=== PATIENT | female | born 1945 | race Caucasian/White ===

== ENCOUNTER 2017-03-13 09:15 | Observation (INO) | payer MEDICARE, BC ==
[~2017-03-13] VITALS: Ht 162.6 cm; Wt 100.0 kg
[2017-03-13] VITALS (9 sets, daily range): BP systolic 138–167; BP diastolic 57–70; PULSE 61–77; RESP 16–20; TEMP 97.8–98.8; O2SAT 92–99
[~2017-03-13 09:15] MED LIST: ALPR0.5T99 PO; AMLO5TAB96 PO; ASPI1TAB7 PO; ATEN-100 PO; ATOR40TA PO; CALC-197 PO; CLON0.5T PO; CLOP75 PO; LEVO112T17 PO; LIOT5TAB PO; NITR0.4S SL; SERT100 PO; TAB-TAB PO
[2017-03-13] MEDS ORDERED: SODIUM CHLORIDE 0.9% FLUSH 10 ML FLUSH IVF PRN (09:45)
[2017-03-13] MEDS ORDERED: ASPIRIN 81 MG CHEW TAB CHEW ONE (09:45)
--- NOTE | 2017-03-13 10:05 | PD ---
HPI Chief Complaint: Chest Pain Time Seen by Provider: 09:30 Travel History International Travel<30 days: No Contact w/Intl Traveler<30days: No Traveled to known affect area: No History of Present Illness HPI This is a 71-year-old female who has a history of coronary artery disease with 5 stents who follows with Dr. Hamilton who presents to the emergency department with chest discomfort that started this morning in the center of her chest, nonradiating, lasting for several minutes and then subsiding. Patient reports that initially started when she was taking a walk this morning and then went away after nitroglycerin. She said when she was walking from the parking lot here to the emergency Department the chest discomfort started again. Currently the pain is resolved. She denies any associated nausea, diaphoresis or shortness of breath. She just had a stress test in January which was reassuring. PFSH Past Medical History Hx Anticoagulant Therapy: Yes (PLAVIX) Arthritis: Yes Blood Disorders: No Anxiety: Yes Depression: Yes Heart Rhythm Problems: No Cancer: No Cardiac Catheterization: Yes () Cardiovascular Problems: Yes High Cholesterol: Yes Chest Pain: Yes Cerebrovascular Accident: No Coronary Artery Disease: Yes Diabetes: No Diminished Hearing: No Endocrine: Yes Gastrointestinal Disorders: Yes GERD: Yes Glaucoma: No Genitourinary: No Headaches: No Hepatitis: No Hiatal Hernia: Yes Hypertension: Yes Immune Disorder: No Implanted Vascular Access Dvce: No Kidney Stones: No Musculoskeletal: Yes Neurologic: Yes Psychiatric: Yes Reproductive: No Respiratory: No Integumentary: No Immunizations Current: No Migraines: No Myocardial Infarction: Yes Renal Failure: No Seizures: No Thyroid Disease: Yes Ulcer: No ?: Not Menopausal: Yes Tubal Ligation: Yes Past Surgical History Abdominal Surgery: No Cardiac Surgery: Yes (stents x5) Coronary Stent: Yes (X2) Ear Surgery: No Endocrine Surgery: No Eye Surgery: No Genitourinary Surgery: No Gynecologic Surgery: Yes (tubal ligation) Neurologic Surgery: No Oral Surgery: Yes (tonsillectomy) Thoracic Surgery: No Tonsillectomy: Yes Other Surgery: Yes (TUBAL LIGATION/TONSILECTOMY/L BREAST BIOPSY) Social History Alcohol Use: Yes (OCC. SOCIALLY) Tobacco Use: No Substance Use: No Allergies-Medications (Allergen,Severity, Reaction): Coded Allergies: Amoxicillin (Verified Allergy, Severe, 03/13/17) Codeine (Verified Allergy, Severe, 03/13/17) Lisinopril (Verified Allergy, Severe, 03/13/17) Penicillin (Verified Allergy, Severe, 03/13/17) Sudafed (Verified Allergy, Severe, 03/13/17) Sulfa (Verified Allergy, Severe, 03/13/17) Reported Meds & Prescriptions Reported Meds & Active Scripts Active Reported Alprazolam 0.5 Mg Tab 0.5 Mg PO DAILY PRN Amlodipine (Amlodipine Besylate) 5 Mg Tab 5 Mg PO BID Aspirin 81 (Aspirin) 81 Mg Tabdr 81 Mg PO DAILY Atenolol 25 Mg Tab 25 Mg PO HS Atorvastatin (Atorvastatin Calcium) 40 Mg Tab 40 Mg PO HS Clonazepam 0.5 Mg Tab 0.5 Mg PO TID Calcium 600 + Vit D Tablet (Calcium Carbonate/Vitamin D3) 1 Each Tablet 1 Tab PO BID Plavix (Clopidogrel Bisulfate) 75 Mg Tab 75 Mg PO DAILY Levothyroxine (Levothyroxine Sodium) 175 Mcg Tab 175 Mcg PO DAILY Bentyl (Dicyclomine HCl) 10 Mg Cap 10 Mg PO BID Nitrostat SL (Nitroglycerin) 0.4 Mg Subl 0.4 Mg SL DIRECTED PRN 1 tablet under the tongue as needed for chest pain. Repeat every 5 minutes for a total of 3 DOSES or call 911 if NO relief. Centrum Silver Adult 50+ (Multiple Vitamins W/ Minerals) 1 Tab Tab 1 Tab PO DAILY B Complex (B-Complex Vitamins) 1 Cap 1 Cap PO DAILY Col-Rite (Docusate Sodium) 50 Mg Capsule 50-100 Mg PO HS PRN Sertraline (Sertraline HCl) 100 Mg Tab 200 Mg PO HS Review of Systems Except as stated in HPI: all other systems reviewed are Neg Physical Exam Narrative GENERAL:Well appearing, no acute distress SKIN: Focused skin assessment warm and dry. HEAD: Atraumatic. Normocephalic. EYES: Pupils equal and round. No injection or drainage. ENT: Moist mucous membranes NECK: Trachea midline. CARDIOVASCULAR: Regular rate and rhythm. 3/6 systolic murmur RESPIRATORY: Clear to auscultation. Breath sounds equal bilaterally. GASTROINTESTINAL: Abdomen soft, non-tender, nondistended. MUSCULOSKELETAL: No obvious deformities. NEUROLOGICAL: Awake and alert. No obvious cranial nerve deficits. Moving all extremities. PSYCHIATRIC: Appropriate mood and affect; insight and judgment normal. Data Data Last Documented VS Vital Signs Date Time Temp Pulse Resp B/P Pulse Ox O2 Delivery O2 Flow Rate FiO2 03/13/17 12:23 68 20 158/69 94 Nasal Cannula 2 03/13/17 09:17 98.8 Orders Electrocardiogram (03/13/17 ) Complete Blood Count With Diff (03/13/17 09:36) Comprehensive Metabolic Panel (03/13/17 09:36) Magnesium (Mg) (03/13/17 09:36) Troponin I (03/13/17 09:36) Chest, Single Ap (03/13/17 09:36) Ecg Monitoring (03/13/17 09:36) Bilateral Bp Monitoring (03/13/17 09:36) Iv Access Insert/Monitor (03/13/17 09:36) Oximetry (03/13/17 09:36) Oxygen Administration (03/13/17 09:36) Sodium Chloride 0.9% Flush (Ns Flush) (03/13/17 09:45) Aspirin Chew (Aspirin Chew) (03/13/17 09:45) Admit Order (Ed Use Only) (03/13/17 12:28) Consult Cardiology (03/13/17 ) Labs Laboratory Tests Test 03/13/17 09:40 White Blood Count 10.0 TH/MM3 Red Blood Count 5.21 MIL/MM3 Hemoglobin 13.5 GM/DL Hematocrit 40.8 % Mean Corpuscular Volume 78.3 FL Mean Corpuscular Hemoglobin 25.9 PG Mean Corpuscular Hemoglobin 33.1 % Concent Red Cell Distribution Width 14.7 % Platelet Count 352 TH/MM3 Mean Platelet Volume 7.8 FL Neutrophils (%) (Auto) 75.7 % Lymphocytes (%) (Auto) 15.4 % Monocytes (%) (Auto) 5.2 % Eosinophils (%) (Auto) 3.0 % Basophils (%) (Auto) 0.7 % Neutrophils # (Auto) 7.6 TH/MM3 Lymphocytes # (Auto) 1.5 TH/MM3 Monocytes # (Auto) 0.5 TH/MM3 Eosinophils # (Auto) 0.3 TH/MM3 Basophils # (Auto) 0.1 TH/MM3 CBC Comment DIFF FINAL Differential Comment Sodium Level 142 MEQ/L Potassium Level 4.2 MEQ/L Chloride Level 108 MEQ/L Carbon Dioxide Level 25.3 MEQ/L Anion Gap 9 MEQ/L Blood Urea Nitrogen 16 MG/DL Creatinine 1.35 MG/DL Estimat Glomerular Filtration 39 ML/MIN Rate Random Glucose 96 MG/DL Calcium Level 9.3 MG/DL Magnesium Level 2.3 MG/DL Total Bilirubin 0.3 MG/DL Aspartate Amino Transf 16 U/L (AST/SGOT) Alanine Aminotransferase 21 U/L (ALT/SGPT) Alkaline Phosphatase 120 U/L Troponin I 0.03 NG/ML Total Protein 7.9 GM/DL Albumin 3.5 GM/DL MDM Medical Decision Making Medical Screen Exam Complete: Yes Emergency Medical Condition: Yes Interpretation(s) Afebrile, no tachycardia, hypertensive No leukocytosis Electrolytes are reassuring Troponin is 0.03 EKG: Normal sinus rhythm, T-wave inversions in the lateral leads Chest x-ray: No acute process Differential Diagnosis Acute coronary syndrome, pulmonary embolism, pericarditis, pneumonia Narrative Course This is a 71-year-old female who has a history of coronary artery disease with 5 stents who presents to the emergency department with symptoms typical of exertional angina. EKG demonstrates some ST depression in the lateral leads. Labs were obtained and patient was placed on a monitor. Troponin is 0.3. I spoke to Dr. Terry who was on-call for Dr. Hamilton. He recommended the patient be placed in observation for possible cardiac catheterization given the exertional component to her symptoms. Physician Communication Physician Communication Discussed with Dr. Crews Diagnosis Primary Impression: Chest pain Qualified Code: R07.9 - Chest pain, unspecified type Stephanie Jacob MD March 13, 2017 10:05
[2017-03-13 10:11] LABS: AUTOMATED NEUTROPHIL # 7.6 TH/MM3 (1.8-7.7); BASOPHIL # 0.1 TH/MM3 (0-0.2); BASOPHIL % 0.7 % (0.0-2.0); EOSINOPHIL # 0.3 TH/MM3 (0-0.4); HEMATOCRIT 40.8 % (35.0-46.0); HEMO FLAGS DIFF FINAL; LYMPH % 15.4 % (9.0-44.0); LYMPHOCYTE # 1.5 TH/MM3 (1.0-4.8); MEAN CELL VOLUME 78.3 FL (80.0-100.0); MEAN CORPUSCULAR HEMOGLOBIN 25.9 PG (27.0-34.0); MEAN CORPUSCULAR HGB CONC 33.1 % (32.0-36.0); MONO % 5.2 % (0.0-8.0); NEUT % 75.7 % (16.0-70.0); PLATELET COUNT 352 TH/MM3 (150-450); RED BLOOD COUNT 5.21 MIL/MM3 (4.00-5.30); RED CELL DISTRIBUTION WIDTH 14.7 % (11.6-17.2)
[2017-03-13 10:24] LABS: ANION GAP 9 MEQ/L (5-15); AST (GOT) 16 U/L (15-37); BICARBONATE 25.3 MEQ/L (21.0-32.0); BLOOD UREA NITROGEN 16 MG/DL (7-18); CHLORIDE 108 MEQ/L (98-107); GLOMERULAR FILTRATION RATE 39 ML/MIN (>89); MAGNESIUM 2.3 MG/DL (1.5-2.5); POTASSIUM 4.2 MEQ/L (3.5-5.1); SODIUM (NA) 142 MEQ/L (136-145)
[2017-03-13 10:28] LABS: ALKALINE PHOSPHATASE 120 U/L (45-117); ALT (GPT) 21 U/L (10-53); TOTAL BILIRUBIN ADULT 0.3 MG/DL (0.2-1.0)
--- NOTE | 2017-03-13 10:47 | RADRPT ---
EXAM DATE/TIME: 03/13/2017 10:17 [facility] COMPARISON: CHEST SINGLE AP, November 02, 2015, 12:31. INDICATIONS : Chest pain. MEDICAL HISTORY : Heart murmur, leaky valves. SURGICAL HISTORY : Coronary artery stent. ENCOUNTER: Initial ACUITY: 1 day PAIN SCORE: 3/10 LOCATION: Chest FINDINGS: Portable AP view of the chest demonstrates a normal-sized cardiac silhouette. No effusion, consolidat ion, or pneumothorax is visualized. The bones and soft tissues demonstrate no acute abnormality. EKG lines overlie the patient. CONCLUSION: No acute cardiopulmonary abnormality is identified. Guy Azar MD on March 13, 2017 at 10:45 Board Certified Radiologist. This report was verified electronically.
--- NOTE | 2017-03-13 11:23 | EKG ---
Date Performed: 03/13/2017 Time Performed: 09:32:59 PTAGE: 71 years EKG: Sinus rhythm Nonspecific ST-T wave changes ABNORMAL ECG INTERPRETATION BASED ON A DEFAULT AGE OF 40 YEARS No sign ificant change from prior electrocardiogram. PREVIOUS TRACING : 12/14/2015 13.51 DOCTOR: Ashok Bright Interpretating Date/Time 03/13/2017 11:23:04
[2017-03-13] MEDS ORDERED: ACETAMINOPHEN 325 MG TAB PO PRN (12:30)
[2017-03-13] MEDS ORDERED: SENNOSIDES 8.6 MG TAB PO PRN (12:30)
[2017-03-13] MEDS ORDERED: ONDANSETRON HCL 4 MG/2 ML VIAL IVP PRN (12:30)
[2017-03-13] MEDS ORDERED: SODIUM CHLORIDE 0.9% FLUSH 10 ML FLUSH IV FLUSH PRN (12:30)
[2017-03-13] MEDS ORDERED: MAGNESIUM HYDROXIDE SUSP 30 ML CUP PO PRN (12:30)
[2017-03-13] MEDS ORDERED: NALOXONE HCL 0.4 MG/ML AMP IV PRN (12:30)
[2017-03-13] MEDS ORDERED: LACTULOSE SYRUP 20 GM/30 ML CUP PO PRN (12:30)
[2017-03-13] MEDS ORDERED: BISACODYL 10 MG SUPP RECTAL PRN (12:30)
[2017-03-13] MEDS ORDERED: LEVO-154 PO (12:54)
[2017-03-13] MEDS ORDERED: VITACAP7 PO (12:54)
[2017-03-13] MEDS ORDERED: MULT1TAB PO (12:54)
[2017-03-13] MEDS ORDERED: SERT-129 PO (12:54)
[2017-03-13] MEDS ORDERED: CYTOMEL PO (12:54)
[2017-03-13] MEDS ORDERED: DICY10 PO (12:54)
[2017-03-13] MEDS ORDERED: DOCU50CA3 PO (12:54)
[2017-03-13] MEDS ORDERED: NITR0.4S SL (12:54)
[2017-03-13] MEDS ORDERED: CALC600T64 PO (12:54)
[2017-03-13] MEDS ORDERED: PLAV75TA29 PO (12:54)
[2017-03-13] MEDS ORDERED: CLON0.5T PO (12:57)
[2017-03-13] MEDS ORDERED: AMLO5TAB2 PO (12:59)
[2017-03-13] MEDS: HEPARIN SODIUM - SQ 10,000 UNITS/ML VIAL SQ SCH (12:59)
[2017-03-13] MEDS ORDERED: ATOR40TA16 PO (12:59)
[2017-03-13] MEDS ORDERED: ALPR0.5T3 PO (12:59)
[2017-03-13] MEDS ORDERED: ASPI-110 PO (12:59)
[2017-03-13] MEDS ORDERED: ATEN25TA PO (12:59)
[2017-03-13] MEDS ORDERED: CLOPIDOGREL 75 MG TAB PO ONE (13:15)
[2017-03-13] MEDS ORDERED: HEPARIN-D5W INJ 250 ML IV SCH (14:45)
--- NOTE | 2017-03-13 14:46 | HHI.PR ---
Objective Objective Results - Vital Signs Date Time Temp Pulse Resp B/P Pulse Ox O2 Delivery O2 Flow Rate FiO2 03/13/17 14:08 97.8 64 16 138/63 98 03/13/17 12:23 68 20 158/69 94 Nasal Cannula 2 03/13/17 10:05 99 Room Air 03/13/17 10:05 99 03/13/17 09:31 72 18 167/70 96 Room Air 03/13/17 09:31 76 20 96 Room Air 03/13/17 09:17 98.8 77 20 95 Room Air Result Diagram: 03/13/17 0940 03/13/17 0940 Other Results Laboratory Tests Test 03/13/17 03/13/17 09:40 13:42 White Blood Count 10.0 Red Blood Count 5.21 Hemoglobin 13.5 Hematocrit 40.8 Mean Corpuscular Volume 78.3 Mean Corpuscular Hemoglobin 25.9 Mean Corpuscular Hemoglobin 33.1 Concent Red Cell Distribution Width 14.7 Platelet Count 352 Mean Platelet Volume 7.8 Neutrophils (%) (Auto) 75.7 Lymphocytes (%) (Auto) 15.4 Monocytes (%) (Auto) 5.2 Eosinophils (%) (Auto) 3.0 Basophils (%) (Auto) 0.7 Neutrophils # (Auto) 7.6 Lymphocytes # (Auto) 1.5 Monocytes # (Auto) 0.5 Eosinophils # (Auto) 0.3 Basophils # (Auto) 0.1 CBC Comment DIFF FINAL Differential Comment Sodium Level 142 Potassium Level 4.2 Chloride Level 108 Carbon Dioxide Level 25.3 Anion Gap 9 Blood Urea Nitrogen 16 Creatinine 1.35 Estimat Glomerular Filtration 39 Rate Random Glucose 96 Calcium Level 9.3 Magnesium Level 2.3 Total Bilirubin 0.3 Aspartate Amino Transf 16 (AST/SGOT) Alanine Aminotransferase 21 (ALT/SGPT) Alkaline Phosphatase 120 Troponin I 0.03 0.09 Total Protein 7.9 Albumin 3.5 Physical Exam Physical Exam PHYSICAL EXAMINATION GENERAL: This is a well-developed, well-nourished female who appears to be in no acute distress. She is alert and awake, []. HEAD: Normocephalic without any lesion or mass noted. Facial features appear symmetric. EYES: Perrla, Normal eye movement, [] Icterus. [] Conj congestion. OROPHARYNGEAL: Oropharynx without erythema or edema. MOUTH/THROAT: Tongue midline []. Buccal mucosa is moist []. NECK: Supple. No nuchal rigidity or lymphadenopathy. Trachea midline without deviation. Thyroid not palpable, no bruits appreciated. CARDIAC: Regular rhythm, regular rate, S1 and S2 are heard. Murmur []; no gallops or rubs. LUNGS: Clear to auscultation bilaterally. [] wheeze, [] rhonchi or [] rale. No use of accessory muscles on inspiration or expiration. ABDOMEN: Soft, nontender, no organomegaly or masses. Bowel sounds are heard in all four quadrants. No rebound. No guarding. EXTREMITIES: [] edema. Pulses equal bilateral. [] cyanosis. NEUROLOGICAL: Patient mood and affect appropriate. Cranial nerves II through XII grossly intact. Muscle strength 5/5 in the upper and lower extremities bilaterally. Deep tendon reflexes are 2+ in the upper and lower extremities bilaterally. SKIN:Warm and moist PSYCH: Mood and affect appropriate A/P Assessment and Plan patient seen and examined Please refer to admission h& P for details 71 yr old female with recent stress test neg , came in with Chest pain on exertion, relieved at rest, increasing troponin and EKG suggesting lateral ischemia will admit to observation, likely NSTEMI consult cardiology Aspirin given start heparin gtt continue to trend troponin BB NPO after midnight likely cardiac cath in am plan of care discussed with patient, at bed side, nursing staff and Pallavi Olmedo MD March 13, 2017 14:45
--- NOTE | 2017-03-13 16:27 | HHI.HP ---
HPI Service [facility] Primary Care Physician Unknown Admission Diagnosis angina Diagnoses: Chief Complaint: chest pain Travel History International Travel<30 Days: No Contact w/Intl Traveler <30 Da: No Traveled to Known Affected Are: No History of Present Illness This a 71-year-old female with known history of coronary artery disease and 5 stents, hypertension, hyperlipidemia, anxiety. Patient presented to the emergency room with complaint of chest pain. Patient indicates that she had gone out for a walk when she had a burning and pressure sensation moving from the epigastric all the way up to mid sternum. Denies any shortness of breath, no nausea, no vomiting, no diaphoresis, no lightheadedness. States that she went home and took a nitroglycerin which relieved it. She decided to come to the emergency room and while walking to the entrance she again developed discomfort. Patient denies any prior myocardial infarction, has never had pain like this. She had a stress test at Dr. Hamilton's office in January which was normal. Her last cardiac catheter was December 2015 where she had angioplasty in-stent restenosis in the ostium of RCA, was found with a patent stent to the LAD and diagonal artery. Indications been compliant with medications, she is on Plavix. Patient was evaluated in emergency room, troponin was noted mildly elevated 0.03, second set was 0.09. EKG shows some ST depression. Dr. Terry who was covering for Dr. Hamilton was called from the emergency room and recommended to place the patient on heparin drip. BMP significant for renal insufficiency which appears to be chronic. Patient is now examined, she denies any chest pain. She is resting comfortably. Patient is admitted for further evaluation and treatment. Review of Systems Constitutional: DENIES: Diaphoretic episodes, Fatigue, Fever, Weight gain, Weight loss, Chills, Dizziness, Change in appetite, Night Sweats Endocrine: DENIES: Abnorml menstrual pattern, Heat/cold intolerance, Polydipsia , Polyuria, Polyphagia Eyes: DENIES: Blurred vision, Diplopia, Eye inflammation, Eye pain, Vision loss , Photosensitivity, Double Vision Ears, nose, mouth, throat: DENIES: Tinnitus, Hearing loss, Vertigo, Nasal discharge, Oral lesions, Throat pain, Hoarseness, Ear Pain, Running Nose, Epistaxis, Sinus Pain, Toothache, Odynophagia Respiratory: DENIES: Apneas, Cough, Snoring, Wheezing, Hemoptysis, Sputum production, Shortness of breath Cardiovascular: COMPLAINS OF: Chest pain Gastrointestinal: DENIES: Abdominal pain, Black stools, Bloody stools, Constipation, Diarrhea, Nausea, Vomiting, Difficulty Swallowing, Anorexia Genitourinary: DENIES: Abnormal vaginal bleeding, Dysmenorrhea, Dyspareunia, Sexual dysfunction, Urinary frequency, Urinary incontinence, Urgency, Hematuria , Dysuria, Nocturia, Vaginal discharge Musculoskeletal: DENIES: Joint pain, Muscle aches, Stiffness, Joint Swelling, Back pain, Neck pain Integumentary: DENIES: Abnormal pigmentation, Pruritus, Rash, Nail changes, Breast masses, Breast skin changes, Nipple discharge Hematologic/lymphatic: DENIES: Bruising, Lymphadenopathy Immunologic/allergic: DENIES: Eczema, Urticaria Neurologic: DENIES: Abnormal gait, Headache, Localized weakness, Paresthesias, Seizures, Speech Problems, Tremor, Poor Balance Psychiatric: DENIES: Anxiety, Confusion, Mood changes, Depression, Hallucinations, Agitation, Suicidal Ideation, Homicidal Ideation, Delusions Past Family Social History Past Medical History CAD, but prior cardiac catheterizations and stents 5. Last cardiac catheter was December 15, 2015 Hypertension Hyperlipidemia Osteoarthritis GERD Anxiety Renal insufficiency Past Surgical History Cardiac catheterization Tubal ligation Tonsillectomy Left breast lumpectomy Hemorrhoidectomy Reported Medications Reported Meds & Active Scripts Active Reported Alprazolam 0.5 Mg Tab 0.5 Mg PO DAILY PRN Amlodipine (Amlodipine Besylate) 5 Mg Tab 5 Mg PO BID Aspirin 81 (Aspirin) 81 Mg Tabdr 81 Mg PO DAILY Atenolol 25 Mg Tab 25 Mg PO HS Atorvastatin (Atorvastatin Calcium) 40 Mg Tab 40 Mg PO HS Clonazepam 0.5 Mg Tab 0.5 Mg PO TID Calcium 600 + Vit D Tablet (Calcium Carbonate/Vitamin D3) 1 Each Tablet 1 Tab PO BID Plavix (Clopidogrel Bisulfate) 75 Mg Tab 75 Mg PO DAILY Levothyroxine (Levothyroxine Sodium) 175 Mcg Tab 175 Mcg PO DAILY [Cytomel] 5 Mcg PO DAILY Bentyl (Dicyclomine HCl) 10 Mg Cap 10 Mg PO BID Nitrostat SL (Nitroglycerin) 0.4 Mg Subl 0.4 Mg SL DIRECTED PRN 1 tablet under the tongue as needed for chest pain. Repeat every 5 minutes for a total of 3 DOSES or call 911 if NO relief. Centrum Silver Adult 50+ (Multiple Vitamins W/ Minerals) 1 Tab Tab 1 Tab PO DAILY B Complex (B-Complex Vitamins) 1 Cap 1 Cap PO DAILY Col-Rite (Docusate Sodium) 50 Mg Capsule 50-100 Mg PO HS PRN Sertraline (Sertraline HCl) 100 Mg Tab 200 Mg PO HS Allergies: Coded Allergies: Amoxicillin (Verified Allergy, Severe, 03/13/17) Codeine (Verified Allergy, Severe, 03/13/17) Lisinopril (Verified Allergy, Severe, 03/13/17) Penicillin (Verified Allergy, Severe, 03/13/17) Sudafed (Verified Allergy, Severe, 03/13/17) Sulfa (Verified Allergy, Severe, 03/13/17) Active Ordered Medications Inpatient Medications Acetaminophen (Tylenol) 650 mg Q4H PRN PO TEMP > 100.4; Start 03/13/17 at 12:30 Amlodipine Besylate (Norvasc) 5 mg BID PO ; Start 03/13/17 at 21:00 Aspirin (Aspirin Chew) 162 mg ONCE ONCE CHEW Last administered on 03/13/17 09 :50; Start 03/13/17 at 09:45; Stop 03/13/17 at 09:46; Status DC Aspirin (Ecotrin Ec) 81 mg DAILY PO ; Start 03/14/17 at 09:00 Atenolol (Tenormin) 25 mg HS PO ; Start 03/13/17 at 21:00 Atorvastatin Calcium (Lipitor) 40 mg HS PO ; Start 03/13/17 at 21:00 Bisacodyl (Dulcolax Supp) 10 mg DAILY PRN RECTAL SEVERE CONSITIPATION; Start at 12:30 Calcium/Vitamin D (Oscal-D 250-125) 500 mg BID PO ; Start 03/13/17 at 21:00 Clonazepam (KlonoPIN) 0.5 mg TID PO Last administered on 03/13/17 18:21; Start 03/13/17 at 18:00 Clopidogrel Bisulfate (Plavix) 75 mg DAILY PO ; Start 03/14/17 at 09:00 Clopidogrel Bisulfate 75 mg 75 mg ONCE ONCE PO Last administered on 03/13/17 13:13; Start 03/13/17 at 13:15; Stop 03/13/17 at 13:16; Status DC Heparin Sodium (Porcine) (Heparin Inj) 5,000 units Q12H SQ Last administered on 03/13/17 12:59; Start 03/13/17 at 13:00 Heparin Sodium/ Dextrose (Heparin-D5W Inj) 250 ml @ 0 mls/hr TITRATE IV Last administered on 03/13/17 17:38; Start 03/13/17 at 14:45 Lactulose (Lactulose Liq) 30 ml DAILY PRN PO SEVERE CONSITIPATION; Start at 12:30 Levothyroxine Sodium (Synthroid) 50 mcg DAILY@06 PO Last administered on 17:01; Start 03/13/17 at 15:00 Magnesium Hydroxide (Milk Of Magnesia Liq) 30 ml Q12H PRN PO MILD - MODERATE CONSTIPATION; Start 03/13/17 at 12:30 Naloxone HCl (Narcan Inj) 0.4 mg UNSCH PRN IV SEE LABEL COMMENTS; Start at 12:30 Nitroglycerin (Nitroglycerin 2% Oint) 1 inch Q8H TOPICAL Last administered on 18:21; Start 03/13/17 at 18:00 Ondansetron HCl (Zofran Inj) 4 mg Q6H PRN IVP NAUSEA OR VOMITING; Start at 12:30 Senna/Docusate Sodium (Tequila-Colace) 1 tab BID PO ; Start 03/13/17 at 21:00 Sennosides (Senokot) 17.2 mg Q12H PRN PO MODERATE - SEVERE CONSTIPATION; Start 03/13/17 at 12:30 Sertraline HCl (Zoloft) 200 mg HS PO ; Start 03/13/17 at 21:00 Sodium Chloride (NS Flush) 2 ml BID IV FLUSH ; Start 03/13/17 at 21:00 Family History Mother - history of myocardial infarction and CHF Social History Patient is , has a son who . No smoking, no alcohol, no substance abuse Physical Exam Vital Signs Vital Signs Date Time Temp Pulse Resp B/P Pulse Ox O2 Delivery O2 Flow Rate FiO2 03/13/17 14:08 97.8 64 16 138/63 98 03/13/17 12:23 68 20 158/69 94 Nasal Cannula 2 03/13/17 10:05 99 Room Air 03/13/17 10:05 99 03/13/17 09:31 72 18 167/70 96 Room Air 03/13/17 09:31 76 20 96 Room Air 03/13/17 09:17 98.8 77 20 95 Room Air Physical Exam GENERAL: This is a well-nourished, well-developed patient, in no apparent distress. SKIN: No rashes, ecchymoses or lesions. Cool and dry. HEAD: Atraumatic. Normocephalic. No temporal or scalp tenderness. EYES: Pupils equal round and reactive. Extraocular motions intact. No scleral icterus. No injection or drainage. ENT: Nose without bleeding, purulent drainage or septal hematoma. Throat without erythema, tonsillar hypertrophy or exudate. Uvula midline. Airway patent. NECK: Trachea midline. No JVD or lymphadenopathy. Supple, nontender, no meningeal signs. CARDIOVASCULAR: Regular rate and rhythm without murmurs, gallops, or rubs. RESPIRATORY: Clear to auscultation. Breath sounds equal bilaterally. No wheezes , rales, or rhonchi. GASTROINTESTINAL: Abdomen soft, non-tender, nondistended. No hepato-splenomegaly , or palpable masses. No guarding. MUSCULOSKELETAL: Extremities without clubbing, cyanosis, or edema. No joint tenderness, effusion, or edema noted. No calf tenderness. Negative Homans sign bilaterally. NEUROLOGICAL: Awake and alert. Cranial nerves II through XII intact. Motor and sensory grossly within normal limits. Five out of 5 muscle strength in all muscle groups. Normal speech. Laboratory Laboratory Tests Test 03/13/17 03/13/17 09:40 13:42 White Blood Count 10.0 Red Blood Count 5.21 Hemoglobin 13.5 Hematocrit 40.8 Mean Corpuscular Volume 78.3 Mean Corpuscular Hemoglobin 25.9 Mean Corpuscular Hemoglobin 33.1 Concent Red Cell Distribution Width 14.7 Platelet Count 352 Mean Platelet Volume 7.8 Neutrophils (%) (Auto) 75.7 Lymphocytes (%) (Auto) 15.4 Monocytes (%) (Auto) 5.2 Eosinophils (%) (Auto) 3.0 Basophils (%) (Auto) 0.7 Neutrophils # (Auto) 7.6 Lymphocytes # (Auto) 1.5 Monocytes # (Auto) 0.5 Eosinophils # (Auto) 0.3 Basophils # (Auto) 0.1 CBC Comment DIFF FINAL Differential Comment Sodium Level 142 Potassium Level 4.2 Chloride Level 108 Carbon Dioxide Level 25.3 Anion Gap 9 Blood Urea Nitrogen 16 Creatinine 1.35 Estimat Glomerular Filtration 39 Rate Random Glucose 96 Calcium Level 9.3 Magnesium Level 2.3 Total Bilirubin 0.3 Aspartate Amino Transf 16 (AST/SGOT) Alanine Aminotransferase 21 (ALT/SGPT) Alkaline Phosphatase 120 Troponin I 0.03 0.09 Total Protein 7.9 Albumin 3.5 Result Diagram: 03/13/1793903/13/17939 Imaging Last Impressions Chest X-Ray 03/13/17935 Signed Impressions: Service Date/Time: Monday, March 13, 2017 10:17 - CONCLUSION: No acute cardiopulmonary abnormality is identified. Guy Azar MD Assessment and Plan Problem List: (1) Chest pain (2) Anxiety (3) CAD (coronary artery disease) (4) Hyperlipidemia (5) GERD (gastroesophageal reflux disease) (6) HTN (hypertension) Assessment and Plan Admit to Dr. Crews 71-year-old female with history of coronary artery disease and prior stents 5. Presented to emergency room with complaint of burning and chest pressure with activity, relieved by nitroglycerin. Noted with mild elevation in troponin -Continue with cardiac enzymes Consulted cardiology for evaluation Continue with heparin drip We'll keep nothing by mouth after midnight for possible cardiac catheterization in the morning Continue Plavix 75 mg by mouth daily, aspirin 81 mg by mouth daily, atenolol 25 mg by mouth daily at bedtime, Lipitor 40 mg by mouth daily at bedtime -Lipid profile in the morning Renal insufficiency, stable Continue to monitor renal function -We'll hydrate cautiously with normal saline at 42 an hour -BMP in am Hypertension, stable Continue home medication Hyperlipidemia Continue statins Lipid profile in the morning GERD Protonix 40 mg by mouth daily Anxiety Continue home medications For DVT prophylaxis, patient will be on heparin drip Home medications reviewed, initiated as indicated Plan of care has been discussed with the patient, attending and registered nurse. Further management of the patient will be dependent on the hospital course This patient was seen by myself and Dr. Crews, this H&P is written on her behalf Problem Qualifiers (1) Chest pain: Qualified Code: R07.9 - Chest pain, unspecified type (2) CAD (coronary artery disease): Qualified Code: I25.118 - Coronary artery disease of [place] artery [place] heart with stable angina pectoris (3) Hyperlipidemia: Qualified Code: E78.5 - Hyperlipidemia, unspecified hyperlipidemia type (4) GERD (gastroesophageal reflux disease): Qualified Code: K21.9 - Gastroesophageal reflux disease, esophagitis presence not specified (5) HTN (hypertension): Qualified Code: I10 - Essential hypertension [place] Will March 13, 2017 16:27
[2017-03-13 16:53] LABS: HEMATOCRIT 40.5 % (35.0-46.0); MEAN CELL VOLUME 79.7 FL (80.0-100.0); MEAN CORPUSCULAR HEMOGLOBIN 25.5 PG (27.0-34.0); MEAN CORPUSCULAR HGB CONC 31.9 % (32.0-36.0); PLATELET COUNT 339 TH/MM3 (150-450); RED BLOOD COUNT 5.07 MIL/MM3 (4.00-5.30); RED CELL DISTRIBUTION WIDTH 14.5 % (11.6-17.2); REVIEW FLAG FINAL
[2017-03-13] MEDS: LEVOTHYROXINE SODIUM 125 MCG TAB PO SCH (17:01)
[2017-03-13] MEDS: LEVOTHYROXINE SODIUM 50 MCG TAB PO SCH (17:01)
[2017-03-13 17:02] LABS: APTT (PATIENT) 28.1 SEC (24.3-30.1); PROTHROMBIN TIME - PATIENT 10.5 SEC (9.8-11.6)
[2017-03-13] MEDS: NITROGLYCERIN 2% OINT 1 GM PACKET TOPICAL SCH (18:21)
[2017-03-13] MEDS: clonazePAM 0.5 MG TAB PO SCH (18:21)
[2017-03-13] MEDS ORDERED: SODIUM CHLOR 0.9% 1000 ML INJ 1,000 ML IV SCH (19:00)
--- NOTE | 2017-03-13 19:12 | MB ---
cc: PAMELA HARMAN M.D. DATE OF SURGERY 03/13/17 REASON FOR CARDIOLOGY CONSULT [id number] myocardial infarct. HISTORY OF PRESENT ILLNESS This is a 71-year-old white female for the last month or so has been having functional class III angina relieved by resting. It was described as a substernal burning with no shortness of breath or diaphoresis. Today she walked 15 minutes [address]-way and tried to come back. She developed substernal burning sensation. She kept on walking, the pain did not change. As soon as she stopped the pain went away. She took a nitro anyway. She was seen in the emergency room was found to have mildly elevated troponin. Her cardiac history dates back to 11 years ago. At that time she had five stents put in the left anterior descending and right coronary artery. Last year because she flunked her nuclear stress test Dr. Hamilton stented her right coronary artery ostiums for in-stent restenoses. She did well until a month ago. She is known to have hypertension and hyperlipidemia. She is a nonsmoker and nondrinker. PAST MEDICAL HISTORY Inguinal hernia repair, hypertension, hyperlipidemia, five stents put in, tubal ligation, benign polyps removed, syncopal episode in the past due to salmonella, colitis. Laminectomy, hypothyroidism. ALLERGIES AMOXICILLIN, CODEINE, LISINOPRIL, PENICILLIN, SUDAFED AND SULFA. MEDICATIONS AT HOME 1. Sertraline 100 milligrams daily. 2. Bentyl 10 milligrams twice a day. 3. Clonazepam 0.5 milligrams t.i.d. 4. Xanax 0.5 milligrams daily p.r.n. 5. Atenolol 25 milligrams daily. 6. Amlodipine 5 milligrams twice a day. 7. Lipitor 40 milligrams daily. 8. Multivitamin. 9. Baby aspirin a day. 10. Plavix 75 milligrams daily. 11. Levothyroxine 175 micrograms p.o. daily. REVIEW OF SYSTEMS ENT: Normal. GI: Normal. : Normal MUSCULOSKELETAL: Had a laminectomy in the past with some arthritis. EXPORT FREIGHT CLERK: No history of stroke. SOCIAL HISTORY This patient is with four children, one at age 27 of accidental drug overdose after a car accident. PHYSICAL EXAMINATION VITAL SIGNS: On the day of consultation show a blood pressure 167/70, pulse is 76 per minute, afebrile. HEAD/NECK: Exam showed normal oral exam. Neck is supple. CHEST: Exam was clear. CARDIOVASCULAR: Examination showed normal neck vein. S1-S2 normal. No S3, no S4. No murmur. ABDOMEN: Abdominal examination revealed liver and spleen not palpable. Bowel sounds normal. Nontender abdomen . EXPORT FREIGHT CLERK: Exam showed normal cranial nerves 3, 4, 6, 5, 7, 9, 10, 11, 12. PERIPHERAL VASCULAR: All peripheral pulses equal, normal. No bruits. ASSESSMENT 1. Non-ST elevation myocardial infarct. 2. Multivessel angioplasty and stenting of the left anterior descending and right coronary artery. 3. Hypertension, hyperlipidemia. 4. Degenerative arthritis with the low back . PLAN The patient will be kept NPO tonight for Dr. Hamilton to schedule for the cardiac catheterization tomorrow. The patient will continue aspirin, Plavix, beta dwayne and anticoagulant. MD SHARON Knight/NILDA /5:27 PM /6:49 PM SHO
[2017-03-13] MEDS: SODIUM CHLORIDE 0.9% FLUSH 10 ML FLUSH IV FLUSH SCH (20:01)
[2017-03-13] MEDS: CALCIUM/VITAMIN D 250 MG/125 U TAB PO SCH (20:41)
[2017-03-13] MEDS: amLODIPine BESYLATE 5 MG TAB PO SCH (20:42)
[2017-03-13] MEDS: DOCUSATE SODIUM 50 MG/SENNA 8.6 MG TAB PO SCH (20:42)
[2017-03-13] MEDS ORDERED: ATENOLOL 25 MG TAB PO SCH (21:00)
[2017-03-13] MEDS ORDERED: ATORVASTATIN 40 MG TAB PO SCH (21:00)
[2017-03-13] MEDS ORDERED: SERTRALINE HCL 100 MG TAB PO SCH (21:00)
[2017-03-13 22:39] LABS: APTT (PATIENT) 35.6 SEC (24.3-30.1)
[2017-03-14] MEDS: HEPARIN SODIUM - SQ 10,000 UNITS/ML VIAL SQ SCH (00:01)
[2017-03-14] MEDS: NITROGLYCERIN 2% OINT 1 GM PACKET TOPICAL SCH (01:34)
[2017-03-14 02:26] VITALS: O2SAT 96
[2017-03-14] MEDS ORDERED: RESP: ALBUTEROL 2.5 MG/IPRATROPIUM 0.5 MG NEB (PRN) NEB (02:30)
[2017-03-14 04:38] VITALS: BP 123/50; PULSE 64; RESP 20; TEMP 97.6; O2SAT 93
[2017-03-14 05:53] LABS: AUTOMATED NEUTROPHIL # 6.4 TH/MM3 (1.8-7.7); BASOPHIL # 0.1 TH/MM3 (0-0.2); BASOPHIL % 0.7 % (0.0-2.0); EOSINOPHIL # 0.3 TH/MM3 (0-0.4); EOSINOPHIL % 3.4 % (0.0-4.0); HEMATOCRIT 37.4 % (35.0-46.0); HEMO FLAGS DIFF FINAL; LYMPH % 26.4 % (9.0-44.0); LYMPHOCYTE # 2.6 TH/MM3 (1.0-4.8); MEAN CORPUSCULAR HEMOGLOBIN 26.4 PG (27.0-34.0); MEAN CORPUSCULAR HGB CONC 33.4 % (32.0-36.0); MONO % 4.8 % (0.0-8.0); NEUT % 64.7 % (16.0-70.0); PLATELET COUNT 346 TH/MM3 (150-450); RED BLOOD COUNT 4.73 MIL/MM3 (4.00-5.30); RED CELL DISTRIBUTION WIDTH 14.5 % (11.6-17.2); WHITE BLOOD COUNT 9.9 TH/MM3 (4.0-11.0)
[2017-03-14 05:58] LABS: APTT (PATIENT) 36.7 SEC (24.3-30.1)
[2017-03-14 06:05] LABS: BICARBONATE 27.6 MEQ/L (21.0-32.0); POTASSIUM 4.1 MEQ/L (3.5-5.1)
[2017-03-14 06:11] LABS: HDL CHOLESTEROL 41.2 MG/DL (40.0-60.0)
[2017-03-14] MEDS: LEVOTHYROXINE SODIUM 50 MCG TAB PO SCH (06:13)
[2017-03-14] MEDS: LEVOTHYROXINE SODIUM 125 MCG TAB PO SCH (06:13)
[2017-03-14 07:03] VITALS: O2SAT 95
[2017-03-14 07:45] VITALS: BP 141/60; PULSE 70; RESP 16; TEMP 97.9; O2SAT 94
--- NOTE | 2017-03-14 08:21 | HHI.PR ---
Subjective Subjective Remarks was sob overnight, hallways were "smoky", she got a duonebs with relief no cp no palpitations afebrile on heparin gtt anxious to have cardiac cath Review of Systems Constitutional Constitutional Remarks 12 point ROS completed, negative except as noted above Vitals/Results Vital Signs Vital Signs Date Time Temp Pulse Resp B/P Pulse Ox O2 Delivery O2 Flow Rate FiO2 03/14/17 07:45 97.9 70 16 141/60 94 03/14/17 07:03 95 Nasal Cannula 3.00 03/14/17 04:38 97.6 64 20 123/50 93 03/14/17 02:26 96 Nasal Cannula 3.00 03/13/17 23:42 98.1 67 18 149/69 92 03/13/17 23:10 63 03/13/17 18:17 142/57 93 03/13/17 14:32 61 03/13/17 14:08 97.8 64 16 138/63 98 03/13/17 12:23 68 20 158/69 94 Nasal Cannula 2 03/13/17 10:05 99 Room Air 03/13/17 10:05 99 03/13/17 09:31 72 18 167/70 96 Room Air 03/13/17 09:31 76 20 96 Room Air 03/13/17 09:17 98.8 77 20 95 Room Air CBC/BMP: 03/14/17 0456 03/14/17 0456 Lab Results Laboratory Tests Test 03/13/17 03/13/17 03/13/17 03/13/17 09:40 13:42 16:23 20:16 White Blood Count 10.0 TH/MM3 10.0 TH/MM3 Red Blood Count 5.21 MIL/MM3 5.07 MIL/MM3 Hemoglobin 13.5 GM/DL 12.9 GM/DL Hematocrit 40.8 % 40.5 % Mean Corpuscular Volume 78.3 FL 79.7 FL Mean Corpuscular Hemoglobin 25.9 PG 25.5 PG Mean Corpuscular Hemoglobin 33.1 % 31.9 % Concent Red Cell Distribution Width 14.7 % 14.5 % Platelet Count 352 TH/MM3 339 TH/MM3 Mean Platelet Volume 7.8 FL 8.1 FL Neutrophils (%) (Auto) 75.7 % Lymphocytes (%) (Auto) 15.4 % Monocytes (%) (Auto) 5.2 % Eosinophils (%) (Auto) 3.0 % Basophils (%) (Auto) 0.7 % Neutrophils # (Auto) 7.6 TH/MM3 Lymphocytes # (Auto) 1.5 TH/MM3 Monocytes # (Auto) 0.5 TH/MM3 Eosinophils # (Auto) 0.3 TH/MM3 Basophils # (Auto) 0.1 TH/MM3 CBC Comment DIFF FINAL Differential Comment Sodium Level 142 MEQ/L Potassium Level 4.2 MEQ/L Chloride Level 108 MEQ/L Carbon Dioxide Level 25.3 MEQ/L Anion Gap 9 MEQ/L Blood Urea Nitrogen 16 MG/DL Creatinine 1.35 MG/DL Estimat Glomerular Filtration 39 ML/MIN Rate Random Glucose 96 MG/DL Calcium Level 9.3 MG/DL Magnesium Level 2.3 MG/DL Total Bilirubin 0.3 MG/DL Aspartate Amino Transf 16 U/L (AST/SGOT) Alanine Aminotransferase 21 U/L (ALT/SGPT) Alkaline Phosphatase 120 U/L Troponin I 0.03 NG/ML 0.09 NG/ML 0.06 NG/ML Total Protein 7.9 GM/DL Albumin 3.5 GM/DL Prothrombin Time 10.5 SEC Prothromb Time International 1.0 RATIO Ratio Activated Partial 28.1 SEC Thromboplast Time Test 03/13/17 03/14/17 22:17 04:56 Activated Partial 35.6 SEC 36.7 SEC Thromboplast Time White Blood Count 9.9 TH/MM3 Red Blood Count 4.73 MIL/MM3 Hemoglobin 12.5 GM/DL Hematocrit 37.4 % Mean Corpuscular Volume 79.0 FL Mean Corpuscular Hemoglobin 26.4 PG Mean Corpuscular Hemoglobin 33.4 % Concent Red Cell Distribution Width 14.5 % Platelet Count 346 TH/MM3 Mean Platelet Volume 8.2 FL Neutrophils (%) (Auto) 64.7 % Lymphocytes (%) (Auto) 26.4 % Monocytes (%) (Auto) 4.8 % Eosinophils (%) (Auto) 3.4 % Basophils (%) (Auto) 0.7 % Neutrophils # (Auto) 6.4 TH/MM3 Lymphocytes # (Auto) 2.6 TH/MM3 Monocytes # (Auto) 0.5 TH/MM3 Eosinophils # (Auto) 0.3 TH/MM3 Basophils # (Auto) 0.1 TH/MM3 CBC Comment DIFF FINAL Differential Comment Sodium Level 143 MEQ/L Potassium Level 4.1 MEQ/L Chloride Level 106 MEQ/L Carbon Dioxide Level 27.6 MEQ/L Anion Gap 9 MEQ/L Blood Urea Nitrogen 19 MG/DL Creatinine 1.28 MG/DL Estimat Glomerular Filtration 41 ML/MIN Rate Random Glucose 92 MG/DL Calcium Level 9.3 MG/DL Troponin I 0.03 NG/ML Triglycerides Level 189 MG/DL Cholesterol Level 170 MG/DL LDL Cholesterol 91 MG/DL HDL Cholesterol 41.2 MG/DL Cholesterol/HDL Ratio 4.12 RATIO Physical Exam General General Appearance: Well Developed, Well Nourished, No Acute Distress, Comfortable Eyes Eye Exam: Pupils Equal, Pupils Reactive Ears & Nose Ears & Nose Exam: Nasal Mucosa Leona Throat Throat Exam: Oral Mucosa Le[place] & Moist Neck Neck Exam: Neck Supple, Trachea Midline Pulmonary Resp Exam: Breath Sounds Equal, No Distress Cardiology CV Exam: Regular, Good Perfusion Gastrointestinal/Abdomen GI Exam: Soft, Non-Tender, Bowel Sounds Present, Positive Bowel Movement, Non- Distended Musculoskeletal MS Exam: Joints Intact Integumentary Skin Exam: Warm, Dry Neurologic Neuro Exam: Alert, Awake, Oriented, Speech Clear, Moving All Extremities, No Focal Deficits Psychiatric Psych Exam: Appropriate Responses VTE Prophylaxis VTE Prophylaxis Meds: Heparin Assessment/Plan Problem List: (1) Chest pain (2) Anxiety (3) CAD (coronary artery disease) (4) Hyperlipidemia (5) GERD (gastroesophageal reflux disease) (6) HTN (hypertension) Assessment/Plan 71-year-old female with history of coronary artery disease and prior stents 5. Presented to emergency room with complaint of burning and chest pressure with activity, relieved by nitroglycerin. Noted with mild elevation in troponin -cardiac enzymes indeterminate appreciate Dr. Terry's input, Dr. Hamilton to eval today for poss cath. For now keep NPO Continue with heparin drip Continue Plavix 75 mg by mouth daily, aspirin 81 mg by mouth daily, atenolol 25 mg by mouth daily at bedtime, Lipitor 40 mg by mouth daily at bedtime -Lipid profile results noted Renal insufficiency, stable Continue to monitor renal function. Improved today -Hydrate cautiously with normal saline at 42 an hour Hypertension, stable Continue home medication Hyperlipidemia Continue statins Lipid profile in the morning GERD Protonix 40 mg by mouth daily Anxiety Continue home medications For DVT prophylaxis, patient will be on heparin drip will wait for card input D/W RN D/W Dr. Crews D/W pt This patient was seen by myself and Dr. Crews, this note is written on her behalf Problem Qualifiers (1) Chest pain: Qualified Code: R07.9 - Chest pain, unspecified type (2) CAD (coronary artery disease): Qualified Code: I25.118 - Coronary artery disease of [place] artery [place] heart with stable angina pectoris (3) Hyperlipidemia: Qualified Code: E78.5 - Hyperlipidemia, unspecified hyperlipidemia type (4) GERD (gastroesophageal reflux disease): Qualified Code: K21.9 - Gastroesophageal reflux disease, esophagitis presence not specified (5) HTN (hypertension): Qualified Code: I10 - Essential hypertension [place] Will March 14, 2017 08:21
[2017-03-14] MEDS ORDERED: VERAPAMIL HCL 5 MG/2 ML VIAL ONE (08:34)
[2017-03-14] MEDS ORDERED: HEPARIN SODIUM - IV 10,000 UNITS/10 ML VIAL ONE (08:34)
[2017-03-14] MEDS ORDERED: HEPARIN-NS/PF INJ 500 ML ONE (08:34)
--- NOTE | 2017-03-14 08:46 | PD.CARD.PN ---
Subjective Subjective Remarks no chest pains Objective Vital Signs / I&O Vital Signs Date Time Temp Pulse Resp B/P Pulse Ox O2 Delivery O2 Flow Rate FiO2 03/14/17 07:45 97.9 70 16 141/60 94 03/14/17 07:03 95 Nasal Cannula 3.00 03/14/17 04:38 97.6 64 20 123/50 93 03/14/17 02:26 96 Nasal Cannula 3.00 03/13/17 23:42 98.1 67 18 149/69 92 03/13/17 23:10 63 03/13/17 18:17 142/57 93 03/13/17 14:32 61 03/13/17 14:08 97.8 64 16 138/63 98 03/13/17 12:23 68 20 158/69 94 Nasal Cannula 2 03/13/17 10:05 99 Room Air 03/13/17 10:05 99 03/13/17 09:31 72 18 167/70 96 Room Air 03/13/17 09:31 76 20 96 Room Air 03/13/17 09:17 98.8 77 20 95 Room Air Physical Exam heart s1s2 lung clear abdomen free ext free Laboratory Laboratory Tests Test 03/13/17 03/13/17 03/13/17 03/13/17 09:40 13:42 16:23 20:16 White Blood Count 10.0 TH/MM3 10.0 TH/MM3 Red Blood Count 5.21 MIL/MM3 5.07 MIL/MM3 Hemoglobin 13.5 GM/DL 12.9 GM/DL Hematocrit 40.8 % 40.5 % Mean Corpuscular Volume 78.3 FL 79.7 FL Mean Corpuscular Hemoglobin 25.9 PG 25.5 PG Mean Corpuscular Hemoglobin 33.1 % 31.9 % Concent Red Cell Distribution Width 14.7 % 14.5 % Platelet Count 352 TH/MM3 339 TH/MM3 Mean Platelet Volume 7.8 FL 8.1 FL Neutrophils (%) (Auto) 75.7 % Lymphocytes (%) (Auto) 15.4 % Monocytes (%) (Auto) 5.2 % Eosinophils (%) (Auto) 3.0 % Basophils (%) (Auto) 0.7 % Neutrophils # (Auto) 7.6 TH/MM3 Lymphocytes # (Auto) 1.5 TH/MM3 Monocytes # (Auto) 0.5 TH/MM3 Eosinophils # (Auto) 0.3 TH/MM3 Basophils # (Auto) 0.1 TH/MM3 CBC Comment DIFF FINAL Differential Comment Sodium Level 142 MEQ/L Potassium Level 4.2 MEQ/L Chloride Level 108 MEQ/L Carbon Dioxide Level 25.3 MEQ/L Anion Gap 9 MEQ/L Blood Urea Nitrogen 16 MG/DL Creatinine 1.35 MG/DL Estimat Glomerular Filtration 39 ML/MIN Rate Random Glucose 96 MG/DL Calcium Level 9.3 MG/DL Magnesium Level 2.3 MG/DL Total Bilirubin 0.3 MG/DL Aspartate Amino Transf 16 U/L (AST/SGOT) Alanine Aminotransferase 21 U/L (ALT/SGPT) Alkaline Phosphatase 120 U/L Troponin I 0.03 NG/ML 0.09 NG/ML 0.06 NG/ML Total Protein 7.9 GM/DL Albumin 3.5 GM/DL Prothrombin Time 10.5 SEC Prothromb Time International 1.0 RATIO Ratio Activated Partial 28.1 SEC Thromboplast Time Test 03/13/17 03/14/17 22:17 04:56 Activated Partial 35.6 SEC 36.7 SEC Thromboplast Time White Blood Count 9.9 TH/MM3 Red Blood Count 4.73 MIL/MM3 Hemoglobin 12.5 GM/DL Hematocrit 37.4 % Mean Corpuscular Volume 79.0 FL Mean Corpuscular Hemoglobin 26.4 PG Mean Corpuscular Hemoglobin 33.4 % Concent Red Cell Distribution Width 14.5 % Platelet Count 346 TH/MM3 Mean Platelet Volume 8.2 FL Neutrophils (%) (Auto) 64.7 % Lymphocytes (%) (Auto) 26.4 % Monocytes (%) (Auto) 4.8 % Eosinophils (%) (Auto) 3.4 % Basophils (%) (Auto) 0.7 % Neutrophils # (Auto) 6.4 TH/MM3 Lymphocytes # (Auto) 2.6 TH/MM3 Monocytes # (Auto) 0.5 TH/MM3 Eosinophils # (Auto) 0.3 TH/MM3 Basophils # (Auto) 0.1 TH/MM3 CBC Comment DIFF FINAL Differential Comment Sodium Level 143 MEQ/L Potassium Level 4.1 MEQ/L Chloride Level 106 MEQ/L Carbon Dioxide Level 27.6 MEQ/L Anion Gap 9 MEQ/L Blood Urea Nitrogen 19 MG/DL Creatinine 1.28 MG/DL Estimat Glomerular Filtration 41 ML/MIN Rate Random Glucose 92 MG/DL Calcium Level 9.3 MG/DL Troponin I 0.03 NG/ML Triglycerides Level 189 MG/DL Cholesterol Level 170 MG/DL LDL Cholesterol 91 MG/DL HDL Cholesterol 41.2 MG/DL Cholesterol/HDL Ratio 4.12 RATIO Assessment and Plan Problem List: (1) Anxiety (2) CAD (coronary artery disease) (3) Hyperlipidemia (4) Chest pain Assessment and Plan: symptoms consistent with unstable angina marginal increase in troponin discussed medical management cs heart cath and possible intervention she opted to proceed with heart cath risks of bleeding infection cva mi emergency surgery limb ischemia renal failure and other unforeseen complications discussed she verbalized understanding (5) HTN (hypertension) (6) GERD (gastroesophageal reflux disease) Problem Qualifiers (1) CAD (coronary artery disease): Qualified Code: I25.118 - Coronary artery disease of [place] artery of [place] heart with stable angina pectoris (2) Hyperlipidemia: Qualified Code: E78.5 - Hyperlipidemia, unspecified hyperlipidemia type (3) Chest pain: Qualified Code: R07.9 - Chest pain, unspecified type (4) HTN (hypertension): Qualified Code: I10 - Essential hypertension (5) GERD (gastroesophageal reflux disease): Qualified Code: K21.9 - Gastroesophageal reflux disease, esophagitis presence not specified Jossue Hamilton MD March 14, 2017 08:46
[2017-03-14] MEDS: DOCUSATE SODIUM 50 MG/SENNA 8.6 MG TAB PO SCH (08:59)
[2017-03-14] MEDS: clonazePAM 0.5 MG TAB PO SCH (08:59)
[2017-03-14] MEDS: amLODIPine BESYLATE 5 MG TAB PO SCH (08:59)
[2017-03-14] MEDS: CALCIUM/VITAMIN D 250 MG/125 U TAB PO SCH (08:59)
[2017-03-14] MEDS ORDERED: PANTOPRAZOLE SOD 40 MG DELAYED RELEASE TAB PO SCH (09:00)
[2017-03-14] MEDS: SODIUM CHLORIDE 0.9% FLUSH 10 ML FLUSH IV FLUSH SCH (09:00)
[2017-03-14] MEDS ORDERED: ASPIRIN EC 81 MG TABEC PO SCH (09:00)
[2017-03-14] MEDS ORDERED: CLOPIDOGREL 75 MG TAB PO SCH (09:00)
[2017-03-14] MEDS ORDERED: IOHEXOL 350 MG/ML 50 ML BTL (for Cath Lab) OTHER ONE (09:38)
[2017-03-14] MEDS ORDERED: MIDAZOLAM HCL 2 MG/2 ML VIAL ONE (09:54)
[2017-03-14] MEDS ORDERED: SODIUM CHLOR 0.9% 1000 ML INJ 500 ML IV SCH (10:30)
--- NOTE | 2017-03-14 10:31 | CATHPROC ---
[facility] HIS Report Study Information Study Number Admission Scheduled Start Study Start [id number] 03/13/2017 03/14/2017 Mar 14 2017 8:20AM Study Type [place] Service Left Heart Cath Cardiac Catheterization Referring Institution Admit Source Facility Department 1 Emergency department [facility] Physician and Clinical Staff Initial Jossue Saul Acquisition Advisor Klever RN, Harry Recorder José Miguel Brewer,RT(R) TECH2 Scrub Ponce Schulz,CAROLINE(BS) Procedures Performed Procedure Location (Site) Vessel Name Coronary Angiograms LCA Left Coronary Coronary Angiograms RCA Right Coronary L Heart Cath Equipment Time Road Conductor Description Size Mfg Part Number Used/Scraped TRANSDUCER, TRUWAVE 09:43 [employer] * [id number] Used W/STOCKCOCK WIRE, HYDROSTEER 150CM [id number] 10:08 DAIG/[employer] 150CM Used ANGLED GLIDE *[id number] 09:43 [employer] IND[employer]RIES PACK, CCL CUSTOM * Used *[id number] 09:43 [employer] SUPPORT, ARTERIAL ADULT [id number] Used 09:43 [employer] PACER PEN, SKIN DUAL W/ RULER * [id number] Used BAND, RADIAL COMPRESSION TR [id number] 10:24 [employer] 29CM Used LARGE 29 *[id number] BAND, RADIAL COMPRESSION TR [id number] 10:16 [employer] 24CM Used SHORT 24 *[id number] 09:43 [employer] WIRE, EXCHANGE 260CM 3MMJ 260CM Used *[id number] 09:43 NAMIC MANIFOLD, 4 PORT * Used *[id number] 09:43 NAMIC TUBING, HIGH PRESSURE 20" 20" Used *[id number] 09:43 [employer] OMNIPAQUE, 350 MG, 150ML 150ML [id number] Used [id number] 09:43 [employer] BLANKET,WARM AIR CCL * Used *[id number] CATHETER, FR5 OPTITORQUE [id number] 10:06 [employer] FR 5 Used RADIAL TIG 4.0 *[id number] SHEATH, FR6 TRANSRADIAL 09:43 [employer] FR 6 RM*[id number] Used SLENDER 10CM Equipment Model, Serial, Lot Number and Expiration Data Description Model Number Serial Number Lot Number Expiration Date BAND, RADIAL COMPRESSION TR [id number] 07-15-2018 LARGE 29 WIRE, HYDROSTEER 150CM [id number] 12-14-2019 GLORIA BARR History: Current Medications Medication Dosage/Unit Route Frequency Last Date/Time Taken Xanax LIPITOR ASA PLAVIX Synthroid NTG Patch HEPARIN Magnesium History: Allergies Allergy Reaction Amoxicillin Codeine Lisinopril Penicillin Sudafed Sulfa History: Risk Factors Family History of Hypertension Dyslipidemia Previous NM Previous Heart Failure Premature CAD Yes Yes No No No Prior Valve Prior PCI Prior PCIDate Prior CABG Surgery No Yes 02/14/2016 No Cerebrovascular Peripheral Artery Chronic Lung On Dialysis Diabetes Disease Disease Disease No No No No No History: Other Disease Selection Items CAD Gerd HTN Renal Failure/Insufficiency History: Other Current Smoker No Labs Hgb (g/dl) Hct (%) WBC (l/cumm) Platelets (thousands) 12.00-18.00 37.00-55.00 4.80-10.80 140.00-450.00 12.5 37.4 9.9 346 BUN (mg/dl) Creatinine (mg/dl) BUN:Creatinine (1:x) 8.00-20.00 0.10-9.00 10.00-20.00 19 1.2 15.8 Na (meq/l) K (meq/l) 138.00-146.00 3.80-5.10 143 4.1 Troponin I (ng/ml) CPK-MB (ng/ML) 0.40-2.30 0.00-7.00 0.06 Not Drawn Medication Medication Total Dose (Bolus/Oral) Medication Total Dosage/Unit 1% XYLOCAINE 5 mL NTG (IC) 100 mcg RADIAL COCKTAIL 5 mL (Bolus) VERSED 1 mg Medications (Bolus/Oral) Medication Time Given Dosage/Unit Administered By Reason VERSED 03/14/2017 10:03:00 AM 1 mg Harry Ernst RN 1 mg VERSED given in lab by Harry Ernst RN via Peripheral IV. Ordered by Jossue Hamilton. 1% XYLOCAINE 03/14/2017 10:03:24 AM 5 mL Harry Ernst RN 5 mL 1% XYLOCAINE given in lab by Harry Ernst RN in Right Radial via Subcutaneous. Ordered by Jossue Hamilton. Ntg 300mcg Verapamil 2.5mg Heparin RADIAL COCKTAIL 03/14/2017 10:05:00 AM 5 mL (Bolus) Jossue Hamilton 2500U 5 mL (Bolus) RADIAL COCKTAIL given in lab by Jossue Hamilton in Right Radial via Radial. Using [Solutio n Name]. Ordered by Jossue Hamilton. Reason: Ntg 300mcg Verapamil 2.5mg Heparin 2500U. NTG (IC) 03/14/2017 10:13:09 AM 100 mcg Jossue Hamilton 100 mcg NTG (IC) given in lab by Jossue Hamilton via Intra-coronary. Ordered by Jossue Hamilton. Medication (Drip) Medication Time Given Dosage/Unit Concentration/Unit Diluent (ml) Solution IV Solutions 03/14/2017 9:43:28 AM 0 mL (IV) 500 NaCl .9 Patient arrived on IV Solutions in Left Forearm via Peripheral IV. Pump/Drip Flow = 20 ml/hr using Na Cl .9. Ordered by Jossue Hamilton. Initial Case Assessment Cardiovascular HR Rhythm NIBP Chest Pain 69 sr 146/62 0 Edema Present Skin color Skin None Normal Warm Dry Circulatory - Right Pulses Dorsalis Pedis Femoral Radial 2 2 2 Scale (0,1,2,3,4,d) Circulatory - Left Pulses Dorsalis Pedis Femoral Radial 2 2 Scale (0,1,2,3,4,d) Circulatory - Lower Extremities Color Lower Right Color Lower Left Normal Normal Neurological State Oriented to time-place- Alert Moves all extremities person Respiration - General SpO2 (%) O2 (lpm) 99 2 Final Case Assessment Cardiovascular HR Rhythm NIBP Chest Pain 75 sr 150/67 0 Edema Present Skin color Skin None Normal Warm Dry Circulatory - Right Pulses Dorsalis Pedis Femoral Radial 2 2 2 Scale (0,1,2,3,4,d) Circulatory - Left Pulses Dorsalis Pedis Femoral Radial 2 2 Scale (0,1,2,3,4,d) Circulatory - Lower Extremities Color Lower Right Color Lower Left Normal Normal Neurological State Oriented to time-place- Alert Moves all extremities person Respiration - General SpO2 (%) O2 (lpm) 99 2 Chronological Log Time Study Chronological Log 9:38:01 Patient arrived via Bed. 9:38:02 Patient Name, D.O.B, / Armband Verified By R.N. 9:38:03 Consent signed by the physician and the patient and verified by the [facility] staff. 9:38:04 Pre-op and post- op instructions given; patient acknowledges understanding of instructions. Verbal Stimulation=~VERBAL~ Physical Stimulation=~PHYSICAL~ Airway=~AIRWAY~ Respiration=~RESPIR ATION~ 9:38:04 TOTAL=~TOTAL~. (0=absent, 1=limited, 2=present) 9:38:58 Patient has been NPO for Less than 6Hrs. 9:38:59 Skin Breakdown- none 9:43:24 Patient Warmer Placed on the Table. 9:43:25 [place] [employer] Protected 9:43:27 A # 20 IV was noted in the Forearm (left). Grade = 0 Patient arrived on IV Solutions in Left Forearm via Peripheral IV. Pump/Drip Flow = 20 ml/hr us ing NaCl .9. Ordered by 9:43:28 Jossue Hamilton. 9:43:29 History and physical on the chart or being dictated. Assessment: Initial Case, HR=69 BPM, Rhythm=sr, KLIJ=449/62 mmhg, Chest Pain=0, Edema=None, Col or=Normal, Skin = Warm, Dry Right Pulses: John Ped=2, Femoral=2, Radial=2 Left Pulses: John Ped=2, Femoral=2 9:43:30 Lower Right Extremities: Color=Normal Lower Left Extremities: Color=Normal Neurological: State=Alert, Ox3, MACKENZIE Respiration: SpO2=99 %, O2=2 lpm 9:43:31 Table restraints applied according to hospital policy Vitals capture started with the following parameters, Patient=Adult, Interval=5 min, Initial Pr fqsgre=958 mmHg, 9:45:19 Deflation Rate=5 mmHg 9:46:35 QJKJ=509/61 mmhg, SpO2=97.0 %, Pain=0, Sarah=10, Fitzpatrick=2 9:51:04 HR=70 bpm, RVBC=521/62 mmhg, SpO2=99.0 %, Resp=21 B/min 9:51:35 Reference ECG taken 9:54:22 Right groin prepped with 2% chlorhexidine, and with a 3 min. waiting time. 9:54:26 Right radial, right brachial, and groin(s) prepped with 2% chlorhexidine, and with a 3 min. waiting time. 9:56:07 HR=70 bpm, RQCK=136/60 mmhg, SpO2=99.0 %, Resp=41 B/min, Pain=0, Sarah=10, Fitzpatrick=2 10:00:58 Pressure channel 1 zeroed. 10:01:06 HR=78 bpm, LHMB=215/61 mmhg, SpO2=99.0 %, Resp=25 B/min, Pain=0, Sarah=10, Fitzpatrick=2 10:03:00 1 mg VERSED given in lab by Harry Ernst RN via Peripheral IV. Ordered by Jossue Hamilton. Time Out. Correct patient, correct procedure,correct physician, ,power injector loaded or not l oaded with contrast with 10:03:18 surgical team present. Time Out Concurred by MD, individual staff and PINNER [employer] BOARDS in procedure 10:03:22 Case Start 10:03:24 5 mL 1% XYLOCAINE given in lab by Harry Ernst RN in Right Radial via Subcutaneous. Ordered by Jossue Hamilton. 10:03:37 Access site was Radial Artery. A SHEATH, FR6 TRANSRADIAL SLENDER 10CM FR 6 was advanced into the Radial (right) using the Mario fied Seldinger 10:03:51 technique. A CATHETER, FR5 OPTITORQUE RADIAL TIG 4.0 FR 5 was advanced over a wire. OMNIPAQUE, 350 MG, 150 ML 150ML 10:04:43 was used for injections. 5 mL (Bolus) RADIAL COCKTAIL given in lab by Jossue Hamilton in Right Radial via Radial. Using [S olution Name]. Ordered 10:05:00 by Jossue Hamilton. Reason: Ntg 300mcg Verapamil 2.5mg Heparin 2500U. 10:06:03 HR=72 bpm, DJRN=175/67 mmhg, SpO2=99.0 %, Resp=34 B/min, Pain=0, Sarah=10, Fitzpatrick=2 Recorded Pressure: Ao, HR=71, Condition=Condition 1 10:06:25 (Aorta) Ao 153/63/100 Recorded Pressure: Ao, HR=71, Condition=Condition 1 10:06:46 (Aorta) Ao 149/58/95 10:11:06 HR=71 bpm, ZUYJ=848/61 mmhg, SpO2=98.0 %, Resp=72 B/min, Pain=0, Sarah=10, Fitzpatrick=2 10:11:54 The LCA was injected and visualized at various angles. OMNIPAQUE, 350 MG, 150ML 150ML used . 10:13:09 100 mcg NTG (IC) given in lab by Jossue Hamilton via Intra-coronary. Ordered by Jossue Hamilton . 10:15:28 The RCA was injected and visualized at various angles. OMNIPAQUE, 350 MG, 150ML 150ML used . 10:15:52 Catheter was removed 10:16:05 HR=76 bpm, SJDF=329/67 mmhg, SpO2=99.0 %, Resp=54 B/min, Pain=0, Sarah=10, Fitzpatrick=2 10:16:54 Case End Assessment: Final Case, HR=75 BPM, Rhythm=sr, ZQOL=378/67 mmhg, Chest Pain=0, Edema=None, Color =Normal, Skin = Warm, Dry Right Pulses: John Ped=2, Femoral=2, Radial=2 Left Pulses: John Ped=2, Femoral=2 10:16:59 Lower Right Extremities: Color=Normal Lower Left Extremities: Color=Normal Neurological: State=Alert, Ox3, MACKENZIE Respiration: SpO2=99 %, O2=2 lpm Radial Compression Device Used. 15 mLs of air placed in BAND, RADIAL COMPRESSION TR SHORT 24 2 4CM. Affected 10:17:55 hand 95 % O2 saturation. 10:18:57 No case complications noted. 10:19:01 Cine recording checked. 10:19:02 Bedside Report will be given. 10:19:07 Contrast Scanned 10:19:10 A Left Heart Cath was performed. 10:19:13 Clinical correlaton risk stratification. 10:21:08 HR=76 bpm, PQEN=439/74 mmhg, SeD3=443.0 %, Resp=36 B/min 10:29:06 Patient moved to [facility] End Study - Contrast Media Used In Study Contrast Total Opened (mL) Total Used (mL) Total Wasted (mL) Omnipaque 150 40 110 End Study - Maximum Contrast Load Max Contrast Load (mL) 416.7 End Study - Radiation Exposure Fluoro Time (minutes) 4.3 End Study - Sheaths Sheaths Pulled By Sheath Hold Time (min) Ponce Schulz End Study - Patient Disposition Complications Transferred To Interventional Outcome No [facility] No attempt made
--- NOTE | 2017-03-14 14:27 | HHI.DCPOC ---
Discharge Care Plan Diagnosis: (1) Chest pain (2) Anxiety (3) CAD (coronary artery disease) (4) Hyperlipidemia (5) GERD (gastroesophageal reflux disease) (6) HTN (hypertension) Your Health Problems Are: Chest Pain Goals to Promote Your Health * To prevent worsening of your condition and complications * To maintain your health at the optimal level Directions to Meet Your Goals Take your medications as prescribed Follow your dietary instruction Follow activity as directed Keep your appointments as scheduled Take your immunizations and boosters as scheduled If your symptoms worsen call your PCP, if no PCP go to Urgent Care Center or Emergency Room Smoking is Dangerous to Your Health. Avoid second hand smoke Call the 24-hour hour crisis hotline for domestic abuse at [place] [facility] March 14, 2017 14:27
--- NOTE | 2017-03-14 20:00 | MP ---
cc: JOSH HERRERA M.D. DATE OF SURGERY: 03/14/2017 INDICATIONS FOR PROCEDURE: The patient is a 71 year-old female, with coronary artery disease, presented with unstable angina symptoms with marginal troponin. PROCEDURE: Left heart catheterization, angiogram. PROCEDURE NOTE After obtaining informed consent, the patient in a fasting state was brought to the public works laborer. The right radial area was sterilized and draped with sterile drapes. 1% Xylocaine was used to locally anesthetize the area. A 6 [place] sheath was used to access the right radial artery and [place] catheter was used to intubate the left main and intubate the right coronary artery. At the end of the procedure, the TR band applied and the sheath was taken out, and sent back to her room in stable condition. No complications. CORONARY ANGIOGRAM The left main coronary artery is a small to medium size vessel, which trifurcates into the LAD and left circumflex coronary artery. The left main has no significant disease. The left anterior descending coronary artery had a stent, with a stent in the diagonal widely patent. There was some generalized spasms relieved partially by intracoronary nitroglycerin. The has no significant disease. The circumflex coronary artery had mild diffuse disease. The right coronary artery has mild disease. No left ventriculogram was performed. Medical management to continue. POSTOPERATIVE DIAGNOSES Patent stents. No significant coronary artery disease. MD DEMETRICE Ward/MORAIMA /10:22 AM /7:36 PM
== END 2017-03-14 15:38 | disposition home or self-care (01) ==
LOC: NEPE 09:15 → NEDA 12:30 → NEPFCDU 13:27 → HCIS 03-14 11:21
PROVIDERS: ADMIT Internal Medicine; ATTEND Internal Medicine
DX: I21.4 Non-ST elevation (NSTEMI) myocardial infarction (principal); I10 Essential (primary) hypertension; E78.5 Hyperlipidemia, unspecified; R01.1 Cardiac murmur, unspecified; R94.31 Abnormal electrocardiogram [ECG] [EKG]; N28.9 Disorder of kidney and ureter, unspecified; I25.111 Atherosclerotic heart disease of native coronary artery with angina pectoris with documented spasm; K21.9 Gastro-esophageal reflux disease without esophagitis; F41.9 Anxiety disorder, unspecified; F32.9 Major depressive disorder, single episode, unspecified; E03.9 Hypothyroidism, unspecified; M19.90 Unspecified osteoarthritis, unspecified site; E78.00 Pure hypercholesterolemia, unspecified; M47.896 Other spondylosis, lumbar region; Z95.5 Presence of coronary angioplasty implant and graft; Z79.899 Other long term (current) drug therapy; Z79.82 Long term (current) use of aspirin; Z79.01 Long term (current) use of anticoagulants
CPT/HCPCS: 71010; 80048; 80053; 80061; 83735; 84484; 85025; 85027; 85610; 85730; 93005; 93454; 94664; 99285; C1769; C1893; G0378; J1644; J2250; J7030; Q9967

== ENCOUNTER 2017-04-17 12:50 | Emergency (ER) | payer MEDICARE, BC ==
[~2017-04-17] VITALS: Ht 162.6 cm; Wt 96.0 kg
[~2017-04-17 12:50] MED LIST changes: +ALPR0.5T3 PO; -ALPR0.5T99 PO; +AMLO5TAB2 PO; -AMLO5TAB96 PO; +ASPI-110 PO; -ASPI1TAB7 PO; -ATEN-100 PO; +ATEN25TA PO; -ATOR40TA PO; +ATOR40TA16 PO; -CALC-197 PO; +CALC600T64 PO; -CLOP75 PO; +CYTOMEL PO; +DICY10 PO; +DOCU50CA3 PO; +LEVO-154 PO; -LEVO112T17 PO; -LIOT5TAB PO; +MULT1TAB PO; +PLAV75TA29 PO; +SERT-129 PO; -SERT100 PO; -TAB-TAB PO; +VITACAP7 PO
[2017-04-17 12:53] VITALS: BP 145/75; PULSE 78; RESP 16; TEMP 98.8; O2SAT 95
[2017-04-17] MEDS ORDERED: PROT40TA PO (13:05)
--- NOTE | 2017-04-17 13:55 | PD ---
HPI Chief Complaint: Pain: Acute or Chronic Time Seen by Provider: 13:11 Travel History International Travel<30 days: No Contact w/Intl Traveler<30days: No Traveled to known affect area: No History of Present Illness HPI C/O ACUTE PAIN ON A CHRONIC CASE OF RIGHT SIDED SCALP AND NECK PAIN. NONRADIATING, BUT HAS A PIMPLE LIKE LESION ON POSTERIOR SCALP AREA. DENIES F/CP /ABD PAIN/RASH/N/V/D... PATIENT HAS NO LATERALIZING WEAKNESS AT THIS POINT ( NOR AT ANY PREVIOUS POINT). PT STATES NO TRAUMA AND IS ON ASA/PLAVIX BLOOD THINNERS. PFSH Past Medical History Hx Anticoagulant Therapy: Yes (PLAVIX AND BABY ASA) Arthritis: Yes Asthma: No Blood Disorders: No Anxiety: Yes Depression: Yes Heart Rhythm Problems: No Cancer: No Cardiac Catheterization: Yes () Cardiovascular Problems: Yes (HTN, CHOL, 5 STENTS, 2 LEAKY VALVES, MURMUR) High Cholesterol: Yes Chemotherapy: No Chest Pain: Yes Congestive Heart Failure: No COPD: No Cerebrovascular Accident: No Coronary Artery Disease: Yes Diabetes: No Diminished Hearing: No Endocrine: Yes Gastrointestinal Disorders: Yes GERD: Yes Glaucoma: No Genitourinary: No Headaches: No Hepatitis: No Hiatal Hernia: Yes Hypertension: Yes Immune Disorder: No Implanted Vascular Access Dvce: No Kidney Stones: No Musculoskeletal: Yes Neurologic: Yes Psychiatric: Yes Reproductive: No Respiratory: No Integumentary: No Immunizations Current: No Migraines: No Myocardial Infarction: Yes Radiation Therapy: No Renal Failure: No Seizures: No Sleep Apnea: No Thyroid Disease: Yes (hypothyroidism ) Ulcer: No Tetanus Vaccination: > 5 Years Influenza Vaccination: Yes ?: Not Menopausal: Yes Tubal Ligation: Yes Past Surgical History Abdominal Surgery: No Cardiac Surgery: Yes (stents x5) Coronary Stent: Yes (X2) Ear Surgery: No Endocrine Surgery: No Eye Surgery: No Genitourinary Surgery: No Gynecologic Surgery: Yes (tubal ligation) Neurologic Surgery: No Oral Surgery: Yes (tonsillectomy) Thoracic Surgery: No Tonsillectomy: Yes Other Surgery: Yes (TUBAL LIGATION/TONSILECTOMY/L BREAST BIOPSY) Social History Alcohol Use: Yes (OCC. SOCIALLY) Tobacco Use: No Substance Use: No Allergies-Medications (Allergen,Severity, Reaction): Coded Allergies: Amoxicillin (Verified Allergy, Severe, 04/17/17) Codeine (Verified Allergy, Severe, 04/17/17) Lisinopril (Verified Allergy, Severe, 04/17/17) Penicillin (Verified Allergy, Severe, 04/17/17) Sudafed (Verified Allergy, Severe, 04/17/17) Sulfa (Verified Allergy, Severe, 04/17/17) Reported Meds & Prescriptions Reported Meds & Active Scripts Active Reported Protonix (Pantoprazole Sodium) 40 Mg Tab 40 Mg PO DAILY Alprazolam 0.5 Mg Tab 0.5 Mg PO DAILY PRN Amlodipine (Amlodipine Besylate) 5 Mg Tab 5 Mg PO BID Aspirin 81 (Aspirin) 81 Mg Tabdr 81 Mg PO DAILY Atenolol 25 Mg Tab 25 Mg PO HS Atorvastatin (Atorvastatin Calcium) 40 Mg Tab 40 Mg PO HS Clonazepam 0.5 Mg Tab 0.5 Mg PO TID Calcium 600 + Vit D Tablet (Calcium Carbonate/Vitamin D3) 1 Each Tablet 1 Tab PO BID Plavix (Clopidogrel Bisulfate) 75 Mg Tab 75 Mg PO DAILY Levothyroxine (Levothyroxine Sodium) 175 Mcg Tab 175 Mcg PO DAILY [Cytomel] 5 Mcg PO DAILY Bentyl (Dicyclomine HCl) 10 Mg Cap 10 Mg PO BID Nitrostat SL (Nitroglycerin) 0.4 Mg Subl 0.4 Mg SL DIRECTED PRN 1 tablet under the tongue as needed for chest pain. Repeat every 5 minutes for a total of 3 DOSES or call 911 if NO relief. Centrum Silver Adult 50+ (Multiple Vitamins W/ Minerals) 1 Tab Tab 1 Tab PO DAILY B Complex (B-Complex Vitamins) 1 Cap 1 Cap PO DAILY Col-Rite (Docusate Sodium) 50 Mg Capsule 50-100 Mg PO HS PRN Sertraline (Sertraline HCl) 100 Mg Tab 200 Mg PO HS Review of Systems Except as stated in HPI: all other systems reviewed are Neg HENT: Positive: Headaches Physical Exam Narrative GENERAL: SKIN: Warm and dry. NEG RASH HEAD: Atraumatic. Normocephalic. POSTERIOR SCALP HAS A RAISED PAPULE 5MM IN DIAMETER, OVER OCCIPITAL TRIANGLE AND IS VERY TENDER TO PALPATION. EYES: Pupils equal and round. No scleral icterus. No injection or drainage. ENT: No nasal bleeding or discharge. Mucous membranes pink and moist. NECK: Trachea midline. No JVD. NEG BRUDZINSKI'S CARDIOVASCULAR: Regular rate and rhythm. RESPIRATORY: No accessory muscle use. Clear to auscultation. Breath sounds equal bilaterally. GASTROINTESTINAL: Abdomen soft, non-tender, nondistended. Hepatic and splenic margins not palpable. MUSCULOSKELETAL: Extremities without clubbing, cyanosis, or edema. No obvious deformities. NEUROLOGICAL: Awake and alert. No obvious cranial nerve deficits. Motor grossly within normal limits. Five out of 5 muscle strength in the arms and legs. Normal speech. PSYCHIATRIC: Appropriate mood and affect; insight and judgment normal. Data Data Last Documented VS Vital Signs Date Time Temp Pulse Resp B/P Pulse Ox O2 Delivery O2 Flow Rate FiO2 04/17/17 12:53 98.8 78 16 145/[address] Brain W/O Iv Contrast(Rout) (04/17/17 ) [facility] Medical Decision Making Medical Screen Exam Complete: Yes Emergency Medical Condition: Yes Medical Record Reviewed: Yes Differential Diagnosis ICH VS BRAIN MASS V OCCIPITAL NEURALGIA V CERVICAL STRAIN Narrative Course CT NEG FOR ICH/BRAIN MASS, NOTED PATIENT'S SYMPTOMS IMPROVED AND DID WELL WITH MEDICATION. WILL D/C ON MUSCLE RELAXERS Diagnosis Primary Impression: OCCIPITAL NEURALGIA OF RIGHT SIDE Patient Instructions: Acute Headache (ED), General Instructions Scripts Hydrocodone-Acetaminophen (Lortab)7.5-325 Mg Tab1 Tab PO Q6H PRN (PAIN) #20 TAB Ref 0 Prov:Sagar Roe MD 04/17/17 Disposition: 01 DISCHARGE HOME Condition: Stable Sagar Roe MD Apr 17, 2017 13:55
--- NOTE | 2017-04-17 14:11 | RADRPT ---
EXAM DATE/TIME: 04/17/2017 13:49 [place] COMPARISON: No previous studies available for comparison. INDICATIONS : Bumped back of head. RADIATION DOSE: 58.14 CTDIvol (mGy) MEDICAL HISTORY : Hypertension. Cardiovascular disease Anticoagulant therapy. SURGICAL HISTORY : Tonsillectomy. Coronary artery stent.Tubal ligation. ENCOUNTER: Initial ACUITY: 1 day PAIN SCALE: 4/10 LOCATION: occipital TECHNIQUE: Multiple contiguous axial images were obtained of the head. Using automated exposure control and adj ustment of the mA and/or kV according to patient size, radiation dose was kept as low as reasonably a chievable to obtain optimal diagnostic quality images. DICOM format image data is available electro nically for review and comparison. FINDINGS: CEREBRUM: The ventricles are normal for age. No evidence of midline shift, mass lesion, hemorrhage or acute in farction. No extra-axial fluid collections are seen. POSTERIOR FOSSA: The cerebellum and brainstem are intact. The 4th ventricle is midline. The cerebellopontine angle i s unremarkable. EXTRACRANIAL: The visualized portion of the orbits is intact. SKULL: The calvaria is intact. No evidence of skull fracture. CONCLUSION: 1. No evidence of acute intracranial pathology. No masses are identified. Edgardo Zarate MD on April 17, 2017 at 14:07 Board Certified Radiologist. This report was verified electronically.
[2017-04-17] MEDS ORDERED: HYDR-3534 PO (14:30)
[2017-04-17 14:35] VITALS: BP 137/54; PULSE 76; RESP 18; O2SAT 98
== END 2017-04-17 15:10 | disposition home or self-care (01) ==
LOC: PHED 12:50
DX: M54.81 Occipital neuralgia (principal); I10 Essential (primary) hypertension; E78.00 Pure hypercholesterolemia, unspecified; K21.9 Gastro-esophageal reflux disease without esophagitis; E03.9 Hypothyroidism, unspecified; I25.2 Old myocardial infarction; Z79.01 Long term (current) use of anticoagulants
CPT/HCPCS: 70450

== ENCOUNTER 2018-12-06 07:54 | Inpatient (IN) ==
[2018-12-06] MEDS ORDERED: Lidocaine 1%/Epinephrine 1:100,000 Inj 20 ML Vial INFILTRATN ONE (08:22)
[2018-12-06] MEDS ORDERED: Tetanus/Diphtheria Toxoid Adult Vaccine Inj 0.5 ML Vial IM ONE (08:22)
--- NOTE | 2018-12-06 08:33 | ED ---
HPI General Chief complaint: Head Injury Stated complaint: Fall/lac to babs of the head Time Seen by Provider: 12/06/18 08:21 Source: patient Mode of arrival: EMS Limitations: no limitations History of Present Illness HPI narrative: This 73-year-old female had a fall at home. She hit the right side of her head on the table as she was falling sustaining a laceration. She had a large amount of pulsatile bleeding from the scalp. She is brought here by ambulance. She does not think she had a loss of consciousness. She does take aspirin and Plavix. She had a mitral valve replacement in October at [facility]. She denies headache. She is not having any other pain. She does not have wrist or hip pain Related Data Home Medications Medication Instructions Recorded Confirmed alprazolam 0.5 mg PO BID 06/20/18 12/06/18 amlodipine 5 mg PO DAILY 06/20/18 12/06/18 aspirin [Aspir-81] 81 mg PO DAILY 06/20/18 12/06/18 atenolol 25 mg PO HS 06/20/18 12/06/18 atorvastatin 40 mg PO HS 06/20/18 12/06/18 calcium carbonate-vitamin D3 2 tab PO DAILY 06/20/18 12/06/18 [Calcium 600 + D(3)] clonazepam 0.5 mg PO TID 06/20/18 12/06/18 clopidogrel 75 mg PO DAILY 06/20/18 12/06/18 dicyclomine 10 mg PO QID 06/20/18 12/06/18 docusate sodium [Stool Softener] 50 mg PO BID 06/20/18 12/06/18 levothyroxine [Synthroid] 150 mcg PO DAILY 06/20/18 12/06/18 arlyexqc-jpth-ZX-calcium-mins 1 tab PO DAILY 06/20/18 12/06/18 [Women's One Daily] sertraline 200 mg PO DAILY 06/20/18 12/06/18 ranitidine HCl 300 mg PO DAILY 12/06/18 12/06/18 Previous Rx's Medication Instructions Recorded methocarbamol [Robaxin] 500 mg PO Q6H PRN #20 tab 06/20/18 Allergies Allergy/AdvReac Type Severity Reaction Status Date / Time amoxicillin Allergy Severe Rash Verified 12/06/18 08:37 codeine Allergy Severe Nausea/Vomi Verified 12/06/18 08:37 ting lisinopril Allergy Severe Rash Verified 12/06/18 08:37 pseudoephedrine Allergy Severe Restlessnes Verified 12/06/18 08:37 s Sulfa (Sulfonamide Allergy Severe Rash Verified 12/06/18 08:37 Antibiotics) Review of Systems ROS: all other systems reviewed are negative [facility] Surgical History Surgical History H/O aortic valve repair (Acute) H/O tubal ligation (Acute) Hx of tonsillectomy (Acute) Social History Social History Substance History: No History of Abuse Second Hand Smoke Exposure: No Smoking Status: Never smoker How Often Do You Have a Drink Containing Alcohol: Never Recent Travel in [facility] within the Last 8 Weeks: No Recent Out of Country Travel within the Last 8 Weeks: No Exam Narrative Exam Narrative: GENERAL: Well-developed female SKIN: Focused skin assessment warm/dry. HEAD:. Normocephalic. She arrives with a dressing over her scalp. There is some moderate amount of bleeding coming from a 3 cm laceration in the right parietal area. EYES: Pupils equal and round. No scleral icterus. No injection or drainage. ENT: No nasal bleeding or discharge. Mucous membranes pink and moist. NECK: Trachea midline. No JVD. CARDIOVASCULAR: Regular rate and rhythm. No murmur appreciated. RESPIRATORY: No accessory muscle use. Clear to auscultation. Breath sounds equal bilaterally. GASTROINTESTINAL: Abdomen soft, non-tender, nondistended. Hepatic and splenic margins not palpable. MUSCULOSKELETAL: No obvious deformities. No clubbing. No cyanosis. No edema. NEUROLOGICAL: Awake and alert. No obvious cranial nerve deficits. Motor grossly within normal limits. Normal speech. PSYCHIATRIC: Appropriate mood and affect; insight and judgment normal. Course Initial Documented Vital Signs Temperature 98.1 F 12/06/18 08:01 Pulse Rate 102 H 12/06/18 08:01 Respiratory Rate 16 12/06/18 08:01 Blood Pressure 160/64 H 12/06/18 08:01 Pulse Oximetry 95 12/06/18 08:01 Last Documented Vital Signs Temperature 98.1 F 12/06/18 08:01 Pulse Rate 98 H 12/06/18 08:29 Respiratory Rate 16 12/06/18 08:29 Blood Pressure 160/64 H 12/06/18 08:29 Pulse Oximetry 95 12/06/18 08:29 Medical Decision Making MDM Narrative Medical decision making narrative: Laceration has been sutured and hemostasis obtained. CT scan of the brain is negative. Patient is stable for discharge Medical Screen Exam Complete: Yes Emergency Medical Condition: Yes Differential Diagnosis Differential Diagnosis: Differential includes scalp laceration, fracture, subdural Imaging Data Radiologist's impression: Head CT 12/06/18 08:22 CONCLUSION: 1. Cerebral atrophy. 2. No intraparenchymal hemorrhage . . Discharge Plan Discharge Disposition Patient Disposition: Discharge Home Discharge Condition Condition: Stable Discharge Order Discharge Orders: Discharge Order (Routine); Ordered 12/06/18 Ordered By: Bubba Daniel Discharge Details Diagnosis: Laceration of scalp Physicians Team ED Provider: Bubba Daniel Primary Care Provider: Surinder Hamm Rxs /Orders / Referrals /Forms Prescriptions: No Action atorvastatin 40 mg Tablet 40 mg PO HS RF: 0 clonazepam 0.5 mg Tablet 0.5 mg PO TID RF: 0 sertraline 100 mg Tablet 200 mg PO DAILY RF: 0 atenolol 25 mg Tablet 25 mg PO HS RF: 0 docusate sodium [Stool Softener] 50 mg Capsule 50 mg PO BID RF: 0 clopidogrel 75 mg Tablet 75 mg PO DAILY RF: 0 amlodipine 5 mg Tablet 5 mg PO DAILY RF: 0 aspirin [Aspir-81] 81 mg Tablet,Delayed Release (Dr/Ec) 81 mg PO DAILY RF: 0 alprazolam 0.5 mg Tablet 0.5 mg PO BID RF: 0 levothyroxine [Synthroid] 150 mcg Tablet 150 mcg PO DAILY RF: 0 dicyclomine 10 mg Capsule 10 mg PO QID RF: 0 calcium carbonate-vitamin D3 [Calcium 600 + D(3)] 600 mg calcium- 200 unit Capsule 2 tab PO DAILY RF: 0 vmveqtzd-iouj-NL-calcium-mins [Women's One Daily] 18 mg iron-400 mcg-500 mg Ca Tablet 1 tab PO DAILY RF: 0 methocarbamol [Robaxin] 500 mg tablet 500 mg PO Q6H PRN (Reason: muscle pain) Qty: 20 RF: 0 ranitidine HCl 300 mg Tablet 300 mg PO DAILY RF: 0 Referrals: Surinder Hamm DO [Primary Care Provider] - 3 Days Discharge Instructions Patient Printed Instructions: Laceration (ED) Additional Instructions: Suture removal 10 days, return if bad headache confusion or weakness Discharge Interventions Interventions: Vital Signs Last Done: 12/06/18 08:40 Status ED Status: With Doctor
--- NOTE | 2018-12-06 09:06 | CT ---
EXAM DATE: 12/06/2018 9:01 AM EST AGE/SEX: 73 years / Female INDICATIONS: Trauma. Fell and hit back of head. Laceration to back of head. CLINICAL DATA: This is the patient's initial encounter. Patient reports that signs and symptoms have been present for 1 day and indicates a pain score of 0/10. MEDICAL/SURGICAL HISTORY: Cardiovascular disease. Tonsillectomy. Tubal ligation. Aortic valve repa ir. RADIATION DOSE: 58.74 CTDI (mGy) COMPARISON: [facility], CT BRAIN W/O CONTRAST, 04/17/2017. . TECHNIQUE: CT of the head without contrast. Using automated exposure control and adjustment of the mA and/or kV according to patient size, radiation dose was kept as low as reasonably achievable to ob tain optimal diagnostic quality images. DICOM format image data is available electronically for revi ew and comparison. FINDINGS: Cerebrum: The ventricles are mildly prominent consistent with atrophy. No evidence of midline shift , mass lesion, hemorrhage or acute infarction. No extraaxial fluid collections are seen. Posterior Fossa: The cerebellum and brainstem are intact. The 4th ventricle is midline. The cerebe llopontine angle is unremarkable. Extracranial: The visualized portion of the orbits is intact. Skull: The calvaria is intact. No evidence of skull fracture. CONCLUSION: 1. Cerebral atrophy. 2. No intraparenchymal hemorrhage . . Electronically signed by: Jim Verde MD Board Certified Radiologist 12/06/2018 9:04 AM EST
[2018-12-06] MEDS ORDERED: Sodium Chlor 0.9% Inj 500 ML IV.SIG SCH (10:00)
[2018-12-06 10:09] LABS: Baso # (Auto) 0.2 th/mm3 (0.0-0.2); Baso % (Auto) 1.2 % (0.0-2.0); Eos # (Auto) 0.1 th/mm3 (0.0-0.4); Eos % (Auto) 0.8 % (0.0-4.0); Hematocrit 34.9 % (35.0-46.0); Hemoglobin 11.7 gm/dL (11.6-15.3); Lymph # (Auto) 1.1 th/mm3 (1.0-4.8); Lymph % (Auto) 6.7 % (9.0-44.0); Mean Corpuscular HGB Conc 33.5 % (32.0-36.0); Mean Corpuscular Hemoglobin 26.8 pg (27.0-34.0); Mean Corpuscular Volume 79.9 fL (80.0-100.0); Mono # (Auto) 0.5 th/mm3 (0.0-0.9); Mono % (Auto) 3.4 % (0.0-8.0); Neut # (Auto) 14.1 th/mm3 (1.8-7.7); Neut % (Auto) 87.9 % (16.0-70.0); Platelet Count 409 th/mm3 (150-450); Red Blood Count 4.37 mil/mm3 (4.00-5.30); Red Cell Distribution Width 13.8 % (11.6-17.2)
[2018-12-06 10:16] LABS: Potassium 3.7 meq/L (3.5-5.1)
[2018-12-06 10:21] LABS: Calcium 8.8 mg/dL (8.5-10.1)
[2018-12-06 10:29] LABS: Troponin I 0.08 ng/mL (0.02-0.05)
[2018-12-06 12:08] LABS: Bilirubin,Urine Negative (Negative); Clarity,Urine Slightly Cloudy (Clear); Color,Urine Yellow (Yellw/Straw); Glucose,Urine (UA) Negative (Negative); Leukocyte Esterase,Urine Moderate (Negative); Nitrite,Urine Negative (Negative); Urobilinogen,Urine 0.2 mg/dL (Less than 2)
[2018-12-06 12:24] LABS: Bacteria,Urine Moderate /hpf; RBC,Urine 0-3 /hpf (0-3); Squamous Epithelial Cell,Urine Greater than 10 /hpf (0-5); WBC,Urine 21-50 /hpf (0-5)
[2018-12-06] MEDS ORDERED: Bisacodyl 10 MG Supp RECTAL PRN (15:09)
--- NOTE | 2018-12-06 15:43 | P.HPIM ---
History of Present Illness Primary Care Physician: Surinder Hamm DO Chief Complaint: Head injury History of Present Illness: This is a 73-year-old female patient with a known medical history of hypertension, hyperlipidemia, history of mitral valve replacement in October of this year and hypothyroidism who presented to the ED status post fall at home. Patient states that she was standing there she fell hit her head on the side of the coffee table sustaining a laceration to her right skull. It was noted that patient had a large amount of pulsating blood from the scalp, this was repaired down in the ED. Patient denies ever losing consciousness when she fell at home. She does not remember how she fell, denies any dizziness or lightheadedness she even denies any weakness in her legs. She denies any frequent falls. It should be noted that patient underwent a mitral valve replacement in October of [facility] of this year, she has been taking aspirin and Plavix and follows with liquified natural gas specialist , Dr. Hamilton. Patient actually saw her liquified natural gas specialist yesterday and had an echocardiogram and per patient report was told that everything looked normal regarding her valve function. Patient's last cardiac stress test was in October of this year as well. Does state that her cholesterol is been checked closely which has been controlled on statin. Denies any recent illness including fever, chills, cough, headache, abdominal pain, nausea, vomiting, diarrhea or dysuria. Patient denies any recent medication changes. She does admit to increased stress, just lost her sister on Monday suddenly. Review of Systems Review of Systems: all other systems reviewed are negative [facility] Surgical History Surgical History H/O aortic valve repair (Acute) H/O tubal ligation (Acute) Hx of tonsillectomy (Acute) Family History Family History Other Family history non-contributory Social History Social History Substance History: No History of Abuse Second Hand Smoke Exposure: No Smoking Status: Never smoker How Often Do You Have a Drink Containing Alcohol: Never Recent Travel in [facility] within the Last 8 Weeks: No Recent Out of Country Travel within the Last 8 Weeks: No Immunization History Tetanus Immunization: <5 Years Hx Influenza Vaccine This Season: Yes Medications and Allergies Allergies Allergy/AdvReac Type Severity Reaction Status Date / Time amoxicillin Allergy Severe Rash Verified 12/06/18 08:37 codeine Allergy Severe Nausea/Vomi Verified 12/06/18 08:37 ting lisinopril Allergy Severe Rash Verified 12/06/18 08:37 pseudoephedrine Allergy Severe Restlessnes Verified 12/06/18 08:37 s Sulfa (Sulfonamide Allergy Severe Rash Verified 12/06/18 08:37 Antibiotics) Home Medications Medication Instructions Recorded Confirmed Type alprazolam 0.5 mg PO BID 06/20/18 12/06/18 History amlodipine 5 mg PO DAILY 06/20/18 12/06/18 History aspirin [Aspir-81] 81 mg PO DAILY 06/20/18 12/06/18 History atenolol 25 mg PO HS 06/20/18 12/06/18 History atorvastatin 40 mg PO HS 06/20/18 12/06/18 History calcium carbonate-vitamin D3 2 tab PO DAILY 06/20/18 12/06/18 History [Calcium 600 + D(3)] clonazepam 0.5 mg PO TID 06/20/18 12/06/18 History clopidogrel 75 mg PO DAILY 06/20/18 12/06/18 History dicyclomine 10 mg PO QID 06/20/18 12/06/18 History docusate sodium [Stool Softener] 50 mg PO BID 06/20/18 12/06/18 History levothyroxine [Synthroid] 150 mcg PO DAILY 06/20/18 12/06/18 History tspzhjez-uhmq-FO-calcium-mins 1 tab PO DAILY 06/20/18 12/06/18 History [Women's One Daily] sertraline 200 mg PO DAILY 06/20/18 12/06/18 History ranitidine HCl 300 mg PO DAILY 12/06/18 12/06/18 History Active Medications: Active Medications Acetaminophen (Tylenol) 650 mg PO Q4H PRN PRN Reason: Temp > 100.4 Al Hydroxide/Mg Hydroxide (Milk Of Magnesia Liq) 30 ml PO Q12H PRN PRN Reason: Mild Constipation Bisacodyl (Dulcolax Supp) 10 mg RECTAL DAILY PRN PRN Reason: SEVERE CONSITIPATION Heparin Sodium (Porcine) (Heparin Inj) 5,000 units SQ Q12H NYA Sodium Chloride (Ns Inj) 1,000 mls @ 50 mls/hr IV.CONT .Q20H NYA Ondansetron HCl (Zofran Inj) 4 mg IV.PUSH Q6H PRN PRN Reason: NAUSEA OR VOMITING Sennosides (Senokot) 17.2 mg PO Q12H PRN PRN Reason: Moderate Constipation Sodium Chloride (Ns Flush) 2 ml IV.FLUSH BID NYA Sodium Chloride (Ns Flush) 2 ml IV.FLUSH PRN PRN PRN Reason: FLUSH AFTER USING IV ACCESS Physical Exam Vital signs: Vital Signs 12/06/18 08:01 12/06/18 08:29 12/06/18 08:40 Temperature 98.1 F Pulse Rate 102 H 98 H 96 H Respiratory Rate 16 16 16 Blood Pressure 160/64 H 160/64 H 161/61 H Pulse Oximetry 95 95 94 L 12/06/18 09:34 12/06/18 09:45 12/06/18 10:05 Temperature Pulse Rate 93 H 91 H 96 H Respiratory Rate 16 16 16 Blood Pressure 142/63 H 151/62 H 164/69 H Pulse Oximetry 94 L 95 96 12/06/18 11:00 12/06/18 12:30 12/06/18 12:59 Temperature Pulse Rate 93 H 87 90 Respiratory Rate 16 16 16 Blood Pressure 145/80 H 163/66 H 154/89 H Pulse Oximetry 97 12/06/18 13:20 Temperature 97.2 F L Pulse Rate 100 H Respiratory Rate 18 Blood Pressure 163/72 H Pulse Oximetry 97 Intake & Output 12/05/18 12/06/18 12/06/18 18:59 06:59 18:59 Intake Total 500 / 500 Balance 500 / 500 Weight 88 kg Intake: IV 500 / 500 NS Inj 500 ML @ 1000 mls/hr IV. 500 / 500 SIG BOLUS NYA Rx#:[id number] Other: Weight On Admission 88 kg Narrative: GENERAL: Well-developed, well-nourished patient in [facility]. SKIN: Warm and dry. No rash. HEAD: Normocephalic. Bandage to the right scalp status post repair of laceration EYES: Pupils equal and round. No scleral icterus. No injection or drainage. ENT: No nasal bleeding or discharge. Mucous membranes pink and moist. NECK: Supple. Trachea midline. CARDIOVASCULAR: Regular rate and rhythm. S1, S2 noted. RESPIRATORY: No accessory muscle use. Clear to auscultation. Breath sounds equal bilaterally. GASTROINTESTINAL: Abdomen soft, non-tender, nondistended. Normoactive bowel sounds x4. MUSCULOSKELETAL: No obvious deformities. Extremities without clubbing, cyanosis , or edema. NEUROLOGICAL: Awake and alert. No obvious cranial nerve deficits. Motor grossly within normal limits. 5/5 muscle strength in bilateral upper and lower extremities. Normal speech. PSYCHIATRIC: Appropriate mood and affect; insight and judgment normal. Results Labs CBC & Chem 7: 12/06/18 10:00 12/06/18 10:[address] 12/06/18 08:22 CONCLUSION: 1. Cerebral atrophy. 2. No intraparenchymal hemorrhage . . Caprini VTE Risk Assessment Caprini VTE Risk Assessment: Moderate/High Risk (score >= 2) Caprini Risk Assessment Model: Point Value = 1 Point Value = 2 Point Value = 3 Point Value = 5 Age 41-60 Minor surgery BMI > 25 kg/m2 Swollen legs Varicose veins or History of unexplained or recurrent spontaneous Oral contraceptives or hormone replacement Sepsis (< 1 month) Serious lung disease, including pneumonia (< 1 month) Abnormal pulmonary function Acute myocardial infarction Congestive heart failure (< 1 month) History of inflammatory bowel disease Medical patient at bed rest Age 61-74 Arthroscopic surgery Major open surgery (> 45 min) Laparoscopic surgery (> 45 min) Malignancy Confined to bed (> 72 hours) Immobilizing plaster cast Central venous access Age >= 75 History of VTE Family history of VTE Factor V Leiden Prothrombin [id number] Lupus anticoagulant Anticardiolipin antibodies Elevated serum homocysteine Heparin-induced thrombocytopenia Other congenital or acquired thrombophilia Stroke (< 1 month) Elective arthroplasty Hip, pelvis, or leg fracture Acute spinal cord injury (< 1 month) Prophylaxis Regimen: Total Risk Factor Score Risk Level Prophylaxis Regimen 0-1 Low Early ambulation 2 Moderate Order ONE of the following: *Sequential Compression Device (SCD) *Heparin 5000 units SQ BID 3-4 Higher Order ONE of the following medications: *Heparin 5000 units SQ TID *Enoxaparin/Lovenox 40 mg SQ daily (WT < 150 kg, CrCl > 30 mL/min) *Enoxaparin/Lovenox 30 mg SQ daily (WT < 150 kg, CrCl > 10-29 mL/min) *Enoxaparin/Lovenox 30 mg SQ BID (WT < 150 kg, CrCl > 30 mL/min) AND/OR *Sequential Compression Device (SCD) 5 or more Highest Order ONE of the following medications: *Heparin 5000 units SQ TID (Preferred with Epidurals) *Enoxaparin/Lovenox 40 mg SQ daily (WT < 150 kg, CrCl > 30 mL/min) *Enoxaparin/Lovenox 30 mg SQ daily (WT < 150 kg, CrCl > 10-29 mL/min) *Enoxaparin/Lovenox 30 mg SQ BID (WT < 150 kg, CrCl > 30 mL/min) AND *Sequential Compression Device (SCD) Assessment and Plan Plan This is a 73-year-old female patient with no medical history of hypertension, hyperlipidemia, status post mitral valve replacement who presented to the ED status post fall at home sustaining a right scalp laceration. All down in the ED, patient was feeling much improved, was going to be discharged home when she went to the bathroom and felt lightheaded and dizzy. She was therefore admitted for observation overnight. Sepsis Abnormal UA -Criteria with leukocytosis, tachycardia and suspected source UTI. -Patient presented with abnormal UA with presence of white blood cells and leukocyte esterase, although there are epithelial cells. This could be contamination. -Will start on ciprofloxacin follow culture. Add blood cultures continue to follow. Check lactic acid. -Ensure hydration, continue IV fluids as ordered. Encourage p.o. intake as tolerated. -Supportive care. Continue to monitor cultures. Acute kidney injury suspect secondary to possible UTI versus dehydration -Creatinine 1.7 on presentation. Ensure hydration with IV fluids. Monitor labs in a.m. -Follow urine culture. Continue antibiotics as above. -Avoid nephrotoxins. Status post fall at home -Head CT on presentation was negative for any acute findings including bleed. -Will order for physical therapy evaluation in a.m. -Will check orthostatic blood pressures rule out orthostatic hypotension. -Supportive care. Close monitoring. Elevated troponin -Troponin 0 0.08. Will trend. Continue on cardiac telemetry to monitor for any arrhythmias. -Patient denies any chest pain. Continue to monitor and supportive care. -EKG reviewed showing sinus rhythm with some inverted T waves in the lateral leads. Recent mitral valve replacement in October of this year -Follows with liquified natural gas specialist, Dr. Vargas, actually had an echocardiogram yesterday. Will attempt to obtain records. Follow. DVT prophylaxis: SCDs. Ambulation. For now will hold chemical prophylaxis status post fall and monitor overnight. Patient is on aspirin and Plavix which will be continued Discussed with patient, bedside RN and Dr. whittaker. H&P: Quality VTE Deep Vein Thrombosis/Pulmonary Embolism Present on Admission: No
[2018-12-06] MEDS ORDERED: Methocarbamol 500 MG Tablet PO PRN (15:44)
--- NOTE | 2018-12-06 15:47 | ECG ---
Date Performed: 12/06/2018 Time Performed: 09:47:22 PTAGE: 73 years EKG: Sinus rhythm LEFT VENTRICULAR HYPERTROPHY AND ST-T CHANGE ABNORMAL ECG Since PREVIOUS TRACING , no significant change noted PREVIOUS TRACIN03/13/2017 09.32 DOCTOR: Fatou Wilson Interpretating Date/Time 12/06/2018 15:45:09
[2018-12-06] MEDS: Acetaminophen 325 MG Tablet PO PRN ×2 (16:17→22:37)
[2018-12-06] MEDS: Sod Chloride 0.9% Inj 1,000 ML IV.CONT SCH (16:18)
[2018-12-06 17:07] LABS: Troponin I 0.35 ng/mL (0.02-0.05)
[2018-12-06] MEDS: clonazePAM 0.5 MG Tablet PO SCH (18:05)
[2018-12-06] MEDS: Heparin - SQ 10,000 UNITS/ML Vial SQ SCH (18:05)
[2018-12-06] MEDS: Dicyclomine 10 MG Capsule PO SCH ×2 (18:05→22:36)
--- NOTE | 2018-12-06 21:13 | ECG ---
Date Performed: 12/06/2018 Time Performed: 16:11:02 PTAGE: 73 years EKG: Sinus rhythm ST/T-WAVE ABNORMALITY, CONSIDER LATERAL ISCHEMIA ABNORMAL ECG PREVIOUS TRACING : 12/06/2018 09.47 No significant change from previous tracing noted. DOCTOR: Armand Campos Interpretating Date/Time 12/06/2018 21:12:01
[2018-12-06 22:22] LABS: Troponin I 0.47 ng/mL (0.02-0.05)
[2018-12-06] MEDS: Docusate Sodium Liq 100 MG/10 ML UDC PO SCH (22:36)
[2018-12-06] MEDS: Ciprofloxacin 250 MG Tablet PO SCH (22:36)
[2018-12-06] MEDS: Atenolol 25 MG Tablet PO SCH (22:38)
[2018-12-06] MEDS: Famotidine 20 MG Tablet PO SCH (22:38)
[2018-12-07 06:21] LABS: Baso % (Auto) 0.5 % (0.0-2.0); Eos # (Auto) 0.2 th/mm3 (0.0-0.4); Eos % (Auto) 1.8 % (0.0-4.0); Hematocrit 27.2 % (35.0-46.0); Hemoglobin 9.1 gm/dL (11.6-15.3); Lymph # (Auto) 1.8 th/mm3 (1.0-4.8); Lymph % (Auto) 19.6 % (9.0-44.0); Mean Corpuscular HGB Conc 33.3 % (32.0-36.0); Mean Corpuscular Hemoglobin 27.5 pg (27.0-34.0); Mean Corpuscular Volume 82.3 fL (80.0-100.0); Mean Platelet Volume 8.5 fL (7.0-11.0); Mono # (Auto) 0.6 th/mm3 (0.0-0.9); Mono % (Auto) 6.7 % (0.0-8.0); Neut # (Auto) 6.7 th/mm3 (1.8-7.7); Neut % (Auto) 71.4 % (16.0-70.0); Platelet Count 304 th/mm3 (150-450); Red Blood Count 3.31 mil/mm3 (4.00-5.30); Red Cell Distribution Width 14.3 % (11.6-17.2); White Blood Count 9.3 th/mm3 (4.0-11.0)
[2018-12-07 06:28] LABS: Potassium 3.6 meq/L (3.5-5.1)
[2018-12-07] MEDS: Heparin - SQ 10,000 UNITS/ML Vial SQ SCH ×2 (06:31→18:36)
[2018-12-07 06:32] LABS: Calcium 8.3 mg/dL (8.5-10.1)
--- NOTE | 2018-12-07 06:49 | ECG ---
Date Performed: 12/06/2018 Time Performed: 21:39:08 PTAGE: 73 years EKG: Sinus rhythm POSSIBLE INFERIOR MYOCARDIAL INFARCTION T-WAVE ABNORMALITY, CONSIDER ANTEROLATERAL ISCHEMIA ABNORMAL ECG PREVIOUS TRACING : 12/06/2018 16.11 No significant change from previous tracing noted. DOCTOR: Armand Campos Interpretating Date/Time 12/07/2018 06:48:52
[2018-12-07] MEDS ORDERED: amLODIPine 5 MG Tablet PO SCH (09:00)
[2018-12-07] MEDS: Dicyclomine 10 MG Capsule PO SCH ×4 (09:42→20:12)
[2018-12-07] MEDS: Ciprofloxacin 250 MG Tablet PO SCH ×2 (09:42→20:12)
[2018-12-07] MEDS: Docusate Sodium Liq 100 MG/10 ML UDC PO SCH ×2 (09:43→20:13)
[2018-12-07] MEDS: Calcium/Vitamin D 250/125 MG Tablet PO SCH (09:43)
[2018-12-07] MEDS: Sertraline 100 MG Tablet PO SCH (09:44)
[2018-12-07] MEDS: Multivitamin/Minerals Therapeutic Tablet PO SCH (09:44)
[2018-12-07] MEDS: Famotidine 20 MG Tablet PO SCH ×2 (09:44→20:14)
[2018-12-07] MEDS: Levothyroxine 150 MCG Tablet PO SCH (09:44)
[2018-12-07] MEDS: clonazePAM 0.5 MG Tablet PO SCH (09:46)
--- NOTE | 2018-12-07 10:29 | P.PNIM ---
Subjective Interval history: Follow-up near syncopal episode at home, abnormal UA and elevated troponin. Patient seen and examined, sitting up in chair comfortably no apparent distress. Deoiling Machine Operator, Dr. Hamilton at bedside as well. He is requesting a VQ scan to rule out PE. Otherwise patient denies any new acute events overnight. She is requesting to resume her Xanax. Eating well without any nausea or vomiting. Denies any dysuria or urinary complaints. Awaiting culture. Vital signs stable. Afebrile. Physical Exam Vital signs: Vital Signs 12/06/18 11:00 12/06/18 12:30 12/06/18 12:59 Temperature Pulse Rate 93 H 87 90 Respiratory Rate 16 16 16 Blood Pressure 145/80 H 163/66 H 154/89 H Pulse Oximetry 97 12/06/18 13:20 12/06/18 16:00 12/06/18 20:00 Temperature 97.2 F L 97.8 F 99.0 F Pulse Rate 100 H 97 H 98 H Respiratory Rate 18 20 22 Blood Pressure 163/72 H 193/83 H 164/70 H Pulse Oximetry 97 95 96 12/06/18 20:30 12/07/18 00:00 12/07/18 00:15 Temperature 98.9 F Pulse Rate 76 85 74 Respiratory Rate 20 Blood Pressure 183/77 H Pulse Oximetry 96 12/07/18 04:20 12/07/18 08:00 Temperature 97.7 F 96.9 F L Pulse Rate 69 67 Respiratory Rate 18 20 Blood Pressure 145/63 H 170/72 H Pulse Oximetry 95 95 Intake & Output 12/06/18 12/07/18 12/07/18 18:59 06:59 18:59 Intake Total 500 / 500 480 / 480 0 / 0 Output Total 450 / 450 200 / 200 Balance 500 / 500 30 / 30 -200 / -200 Weight 88 kg 89 kg Intake: IV 500 / 500 NS Inj 500 ML @ 1000 mls/hr IV. 500 / 500 SIG BOLUS NYA Rx#:[id number] Oral 480 / 480 0 / 0 Output: Urine 450 / 450 200 / 200 Other: # Voids 1 Weight On Admission 88 kg Narrative: GENERAL: Well-developed, well-nourished patient in [facility]. SKIN: Warm and dry. No rash. HEAD: Normocephalic. Bandage to the right scalp status post repair of laceration EYES: Pupils equal and round. No scleral icterus. No injection or drainage. ENT: No nasal bleeding or discharge. Mucous membranes pink and moist. NECK: Supple. Trachea midline. CARDIOVASCULAR: Regular rate and rhythm. S1, S2 noted. RESPIRATORY: No accessory muscle use. Clear to auscultation. Breath sounds equal bilaterally. GASTROINTESTINAL: Abdomen soft, non-tender, nondistended. Normoactive bowel sounds x4. MUSCULOSKELETAL: No obvious deformities. Extremities without clubbing, cyanosis , or edema. NEUROLOGICAL: Awake and alert. No obvious cranial nerve deficits. Motor grossly within normal limits. 5/5 muscle strength in bilateral upper and lower extremities. Normal speech. PSYCHIATRIC: Appropriate mood and affect; insight and judgment normal. Results Labs CBC & Chem 7: 12/07/18 05:08 12/07/18 05:08 Assessment and Plan Plan This is a 73-year-old female patient with no medical history of hypertension, hyperlipidemia, status post mitral valve replacement who presented to the ED status post fall at home sustaining a right scalp laceration. All down in the ED, patient was feeling much improved, was going to be discharged home when she went to the bathroom and felt lightheaded and dizzy. She was therefore admitted for observation overnight. Sepsis Abnormal UA -Criteria with leukocytosis, tachycardia and suspected source UTI. -Patient presented with abnormal UA with presence of white blood cells and leukocyte esterase, although there are epithelial cells. This could be contamination. -Will start on ciprofloxacin follow culture. Add blood cultures continue to follow. Lactic acid normal. -Ensure hydration, continue IV fluids as ordered. Encourage p.o. intake as tolerated. -Supportive care. Continue to monitor cultures. Acute kidney injury suspect secondary to possible UTI versus dehydration -Creatinine 1.7 on presentation. Down to 1.5 today. Ensure hydration with IV fluids. Monitor labs in a.m. -Follow urine culture. Continue antibiotics as above. -Avoid nephrotoxins. Status post fall at home -Head CT on presentation was negative for any acute findings including bleed. -Awaiting physical therapy evaluation. -Check orthostatic blood pressures. -Supportive care. Close monitoring. Elevated troponin Recent aortic valve replacement -Troponin 0 0.08, 0.3, 0.4. Continue on cardiac telemetry to monitor for any arrhythmias. None overnight. -Patient denies any chest pain. Continue to monitor and supportive care. -EKG reviewed showing sinus rhythm with some inverted T waves in the lateral leads. -Patient's circus rider, Dr. Hamilton at bedside today, review of recent echocardiogram showing EF of 50%. -Patient actually underwent an aortic valve replacement with Tavr in October of this year. -Requesting to obtain a VQ scan to rule out any PE for cause of elevated troponin. Anxiety This is chronic for the patient. [employer] database has been queried patient does take Xanax as well as clonazepam. Resume as ordered. DVT prophylaxis: SCDs. Ambulation. For now will hold chemical prophylaxis status post fall and monitor overnight. Patient is on aspirin and Plavix which will be continued Discussed with patient, bedside RN and Dr. whittaker. Progress Note: Quality VTE Deep Vein Thrombosis/Pulmonary Embolism Present on Admission: No
[2018-12-07] MEDS ORDERED: clonazePAM 0.5 MG Tablet PO PRN (11:01)
[2018-12-07] MEDS: ALPRAZolam 0.5 MG Tablet PO SCH ×3 (11:51→20:14)
[2018-12-07] MEDS: Sod Chloride 0.9% Inj 1,000 ML IV.CONT SCH (15:28)
[2018-12-07] MEDS ORDERED: amLODIPine 5 MG Tablet PO ONE (16:00)
--- NOTE | 2018-12-07 16:29 | NM ---
EXAM DATE: 12/07/2018 4:25 PM EST AGE/SEX: 73 years / Female INDICATIONS: Patient fell. CLINICAL DATA: This is the patient's initial encounter. Patient reports that signs and symptoms have been present for 1 day and indicates a pain score of 0/10. MEDICAL/SURGICAL HISTORY: Hypertension. Hypercholesterolemia. Hysterectomy. Tubal ligation. M itral valve replacement. COMPARISON: [facility] [place], CHEST SINGLE AP, 03/13/2017. . DOSE: 1.1 mCi Tc99m DTPA aerosol 8.6 mCi Tc99m MAA IV TECHNIQUE: Following five minutes of tidal breathing of DTPA aerosol, planar images of the lungs wer e performed in eight projections. The patient was then injected with MAA, and eight-view perfusion s can was performed. FINDINGS: There is a homogeneous pattern of aerosol delivery to the periphery of both lungs. No focal ventilat ory defects are seen. The perfusion lung scan demonstrates a homogenous pattern of uptake in both lungs. No segmental or s ubsegmental defects are seen. CONCLUSION: 1. Negative examination. Electronically signed by: Arely Arvizu MD Board Certified Radiologist 12/07/2018 4:28 PM EST
[2018-12-07] MEDS: Aluminum/Magnesium/Simethacone Susp 30 ML UDC PO PRN (18:36)
[2018-12-07] MEDS: Atenolol 25 MG Tablet PO SCH (20:14)
[2018-12-08] MEDS: Heparin - SQ 10,000 UNITS/ML Vial SQ SCH (05:22)
[2018-12-08 07:33] LABS: Baso # (Auto) 0.1 th/mm3 (0.0-0.2); Baso % (Auto) 0.5 % (0.0-2.0); Eos # (Auto) 0.4 th/mm3 (0.0-0.4); Eos % (Auto) 3.9 % (0.0-4.0); Hematocrit 26.8 % (35.0-46.0); Hemoglobin 8.8 gm/dL (11.6-15.3); Lymph # (Auto) 2.7 th/mm3 (1.0-4.8); Lymph % (Auto) 26.5 % (9.0-44.0); Mean Corpuscular HGB Conc 32.6 % (32.0-36.0); Mean Corpuscular Hemoglobin 26.4 pg (27.0-34.0); Mean Corpuscular Volume 80.9 fL (80.0-100.0); Mean Platelet Volume 8.1 fL (7.0-11.0); Mono # (Auto) 0.5 th/mm3 (0.0-0.9); Mono % (Auto) 5.2 % (0.0-8.0); Neut # (Auto) 6.7 th/mm3 (1.8-7.7); Neut % (Auto) 63.9 % (16.0-70.0); Platelet Count 311 th/mm3 (150-450); Red Blood Count 3.32 mil/mm3 (4.00-5.30); Red Cell Distribution Width 14.1 % (11.6-17.2); White Blood Count 10.4 th/mm3 (4.0-11.0)
[2018-12-08 07:44] LABS: Potassium 3.6 meq/L (3.5-5.1)
[2018-12-08 07:49] LABS: Calcium 8.5 mg/dL (8.5-10.1); Carbon Dioxide 26.5 meq/L (21.0-32.0)
--- NOTE | 2018-12-08 08:00 | P.DS ---
DS: Providers Date of admission: 12/06/18 16:26 Primary care physician: Surinder Hamm DO Brief History from admission: This is a 73-year-old female patient with a known medical history of hypertension, hyperlipidemia, history of mitral valve replacement in October of this year and hypothyroidism who presented to the ED status post fall at home. Patient states that she was standing there she fell hit her head on the side of the coffee table sustaining a laceration to her right skull. It was noted that patient had a large amount of pulsating blood from the scalp, this was repaired down in the ED. Patient denies ever losing consciousness when she fell at home. She does not remember how she fell, denies any dizziness or lightheadedness she even denies any weakness in her legs. She denies any frequent falls. It should be noted that patient underwent a mitral valve replacement in October of [facility] of this year, she has been taking aspirin and Plavix and follows with solderer barrel ribs , Dr. Hamilton. Patient actually saw her solderer barrel ribs yesterday and had an echocardiogram and per patient report was told that everything looked normal regarding her valve function. Patient's last cardiac stress test was in October of this year as well. Does state that her cholesterol is been checked closely which has been controlled on statin. Denies any recent illness including fever, chills, cough, headache, abdominal pain, nausea, vomiting, diarrhea or dysuria. Patient denies any recent medication changes. She does admit to increased stress, just lost her sister on Monday suddenly. DS: Summary This is a 73-year-old female patient with no medical history of hypertension, hyperlipidemia, status post mitral valve replacement who presented to the ED status post fall at home sustaining a right scalp laceration. All down in the ED, patient was feeling much improved, was going to be discharged home when she went to the bathroom and felt lightheaded and dizzy. She was therefore admitted for observation overnight. He was sepsis-like criteria with leukocytosis, tachycardia and suspected source UTI. UA did show some probable contaminants although patient did complain of some dysuria, this was treated with ciprofloxacin. Lactic acid was normal on presentation. Patient was given IV fluids throughout the hospitalization, tolerated p.o. intake well without any abdominal pain, nausea or vomiting. Patient did have acute kidney injury on presentation suspect secondary to UTI versus dehydration, creatinine improving on day of discharge. Patient is status post fall, head CT on presentation was negative. She did sustain a head laceration which was repaired in the ED, patient will follow up with her PCP to have sutures removed. Orthostatic blood pressures were negative. Physical therapy evaluation appreciated, home health care has been arranged for patient on day of discharge. Patient did have an elevated troponin as well as recent aortic valve replacement in October of this year. Cardiology and to see patient during hospitalization, a VQ scan was done to rule out any PE which was negative. Patient will follow up with her solderer barrel ribs as recommended. Patient does have a history of anxiety, was continued on her Xanax and clonazepam as ordered in the [employer] database. Patient is stable at this time and agreeable to plan. Ready to discharge home. Stable. Rx and diet and activities ordered. All questions answered. Time Spent with Patient Total time spent providing and/or coordinating discharge services: Greater than 30 minutes Quality: VTE Deep Vein Thrombosis/Pulmonary Embolism Present on Admission: No Exam Narrative Exam Narrative: GENERAL: Well-developed, well-nourished patient in [facility]. SKIN: Warm and dry. No rash. HEAD: Normocephalic. Had a laceration to the right scalp with sutures in place. EYES: Pupils equal and round. No scleral icterus. No injection or drainage. ENT: No nasal bleeding or discharge. Mucous membranes pink and moist. NECK: Supple. Trachea midline. CARDIOVASCULAR: Regular rate and rhythm. S1, S2 noted. RESPIRATORY: No accessory muscle use. Clear to auscultation. Breath sounds equal bilaterally. GASTROINTESTINAL: Abdomen soft, non-tender, nondistended. Normoactive bowel sounds x4. MUSCULOSKELETAL: No obvious deformities. Extremities without clubbing, cyanosis , or edema. NEUROLOGICAL: Awake and alert. No obvious cranial nerve deficits. Motor grossly within normal limits. 5/5 muscle strength in bilateral upper and lower extremities. Normal speech. PSYCHIATRIC: Appropriate mood and affect; insight and judgment normal. Results Labs on day of discharge: Labs from last 24 hours 12/08/18 12/08/18 06:49 06:49 CBC w Diff Auto diff final WBC 10.4 RBC 3.32 L Hgb 8.8 L Hct 26.8 L MCV 80.9 MCH 26.4 L MCHC 32.6 RDW 14.1 Plt Count 311 MPV 8.1 Neut % (Auto) 63.9 Lymph % (Auto) 26.5 Ponce % (Auto) 5.2 Eos % (Auto) 3.9 Baso % (Auto) 0.5 Neut # (Auto) 6.7 Lymph # (Auto) 2.7 Ponce # (Auto) 0.5 Eos # (Auto) 0.4 Baso # (Auto) 0.1 WBC Differential . Differential Comment . Sodium 142 Potassium 3.6 Chloride 108 H Carbon Dioxide 26.5 Anion Gap 8 BUN 19 H Creatinine 1.40 H Estimated GFR 37 L Random Glucose 87 Calcium 8.5 Preliminary micro results at discharge 12/06/18 21:51 Aerobic Blood Culture - Preliminary Blood - Peripheral No growth in 1 day Anaerobic Blood Culture - Preliminary No growth in 1 day 12/06/18 21:45 Aerobic Blood Culture - Preliminary Blood - Peripheral No growth in 1 day Anaerobic Blood Culture - Preliminary No growth in 1 day Impressions ITS Impressions Head CT 12/06/18 08:22 CONCLUSION: 1. Cerebral atrophy. 2. No intraparenchymal hemorrhage . . Pulmonary Perfusion Imaging 12/07/18 00:00 CONCLUSION: 1. Negative examination. Discharge Plan Discharge Disposition Patient Disposition: Disch W/Home Health Service Discharge Condition Condition: Stable Discharge Order Discharge Orders: Discharge Order (Routine); Ordered 12/06/18 Ordered By: Bubba Daniel Hospitalist Clear for Discharge (Routine); Ordered 12/08/18 Ordered By: Marilee Dinh Discharge Details Anticipated Discharge Date: 12/08/18 Discharge Comment: f/u pcp Patient will need right head laceration sutures removed in about a week. PCP or home health care to remove. Physicians Team ED Provider: Bubba Daniel Primary Care Provider: Surinder Hamm Attending Provider: Jim Murry Rxs /Orders / Referrals /Forms Prescriptions: New ciprofloxacin HCl 250 mg Tablet 250 mg PO Q18H Qty: 3 RF: 0 Continue atorvastatin 40 mg Tablet 40 mg PO HS RF: 0 clonazepam 0.5 mg Tablet 0.5 mg PO TID RF: 0 sertraline 100 mg Tablet 200 mg PO DAILY RF: 0 atenolol 25 mg Tablet 25 mg PO HS RF: 0 docusate sodium [Stool Softener] 50 mg Capsule 50 mg PO BID RF: 0 clopidogrel 75 mg Tablet 75 mg PO DAILY RF: 0 aspirin [Aspir-81] 81 mg Tablet,Delayed Release (Dr/Ec) 81 mg PO DAILY RF: 0 alprazolam 0.5 mg Tablet 0.5 mg PO BID RF: 0 levothyroxine [Synthroid] 150 mcg Tablet 150 mcg PO DAILY RF: 0 dicyclomine 10 mg Capsule 10 mg PO DAILY RF: 0 calcium carbonate-vitamin D3 [Calcium 600 + D(3)] 600 mg calcium- 200 unit Capsule 2 tab PO DAILY RF: 0 nirvllpc-gngr-LF-calcium-mins [Women's One Daily] 18 mg iron-400 mcg-500 mg Ca Tablet 1 tab PO DAILY RF: 0 methocarbamol [Robaxin] 500 mg tablet 500 mg PO Q6H PRN (Reason: muscle pain) Qty: 20 RF: 0 ranitidine HCl 300 mg Tablet 300 mg PO DAILY RF: 0 Ambulatory Orders / Order Sets / DME: Complete Blood Count with Diff (Routine) Timeframe: 3 Days Location: Determined by Patient Ordered By: Marilee Dinh Referrals: Surinder Hamm DO [Primary Care Provider] - 12/10/18 12:00 am ( Please call the physician's office when they are open for f/u apt after d/c) Discharge Instructions Patient Printed Instructions: Laceration (ED) Additional Instructions: Suture removal 10 days, return if bad headache confusion or weakness Discharge Interventions Interventions: Discharge Planning - Case Management Last Done: 12/06/18 11:46 Status ED Status: Left Department
--- NOTE | 2018-12-08 08:03 | P.DCO ---
Physical Therapy Order: Evaluate and treat, Improve ambulation and Strength and gait training Home Health Nursing Order: Medical education, Signs/symptoms of disease process and Nursing assessment with vital signs Case Management Consult Case Management Consult-Home Health: Yes I have seen patient Shazia Perez on 12/08/18. My clinical findings support the need for the requested home health care services because: Limited ability to care for self I certify that my clinical findings support that this patient is homebound because: Impaired cognitive ability/safety
[2018-12-08] MEDS ORDERED: amLODIPine 10 MG Tablet PO SCH (09:00)
[2018-12-08] MEDS: Aluminum/Magnesium/Simethacone Susp 30 ML UDC PO PRN (09:16)
[2018-12-08 09:17] VITALS: BP 160/63; RESP 20; TEMP 97.6; O2SAT 95
[2018-12-08] MEDS: Sertraline 100 MG Tablet PO SCH (09:17)
[2018-12-08] MEDS: Levothyroxine 150 MCG Tablet PO SCH (09:17)
[2018-12-08] MEDS: Multivitamin/Minerals Therapeutic Tablet PO SCH (09:17)
[2018-12-08] MEDS: Calcium/Vitamin D 250/125 MG Tablet PO SCH (09:17)
[2018-12-08] MEDS: Dicyclomine 10 MG Capsule PO SCH (09:17)
[2018-12-08] MEDS: Docusate Sodium Liq 100 MG/10 ML UDC PO SCH (09:18)
[2018-12-08] MEDS: ALPRAZolam 0.5 MG Tablet PO SCH (09:18)
[2018-12-08] MEDS: Famotidine 20 MG Tablet PO SCH (09:18)
[2018-12-08 09:22] VITALS: PULSE 78
[2018-12-08] MEDS ORDERED: Ciprofloxacin 250 MG Tablet PO SCH (15:00)
== END 2018-12-08 11:49 | disposition home health service (06) | DRG 684 ==
LOC: PHEDA 07:54 → PHED 07:54 → PHEDA 13:15 → PH3 13:24
PROVIDERS: ADMIT Hospitalist; ATTEND Hospitalist
DX: Z95.2 Presence of prosthetic heart valve; E78.5 Hyperlipidemia, unspecified; N17.9 Acute kidney failure, unspecified; R82.90 Unspecified abnormal findings in urine; Y92.009 Unspecified place in unspecified non-institutional (private) residence as the place of occurrence of the external cause; E86.0 Dehydration; D64.9 Anemia, unspecified; Z88.0 Allergy status to penicillin; R55 Syncope and collapse; Z88.5 Allergy status to narcotic agent; E03.9 Hypothyroidism, unspecified; W18.30XA Fall on same level, unspecified, initial encounter; R30.0 Dysuria; I10 Essential (primary) hypertension; R74.8 Abnormal levels of other serum enzymes; S01.01XA Laceration without foreign body of scalp, initial encounter; Z88.2 Allergy status to sulfonamides; F41.9 Anxiety disorder, unspecified
CPT/HCPCS: 12002; 70450; 78582; 80048; 81001; 82550; 83605; 84484; 85025; 87040; 87086; 90471; 90702; 90714; 90718; 93005; 99285; A9519; A9540; A9567; C1094; J1644; J7030; J7040